=== PATIENT | male | born 1970 | race Caucasian/White ===

== ENCOUNTER 2023-07-31 16:52 | Inpatient (IN) | payer OTHER, SELFPAY ==
[2023-07-31] VITALS (12 sets, daily range): BP systolic 85–119; BP diastolic 36–69; BMI 31.2
--- NOTE | 2023-07-31 12:28 | ED.GENMED ---
History of Present Illness
General
Chief Complaint: Musculo-Skeletal Complaint
Time Seen by Provider: 07/31/23 12:04
Travel History
Have you had any contact with someone who has COVID-19?: No
Do you have any symptoms of coronavirus? Fever > 100 degrees, chills, cough, shortness of breath, sore throat, loss of taste or smell, muscle aches, or headache?: No
History of Present Illness
History of Present Illness:
52-year-old male presents to the emergency department for evaluation of severe right hip pain radiating down the right leg. He is status post right total hip replacement performed by [facility] orthopedics on June 27. 9 days ago while in
[place] he apparently had several syncopal events which resulted in a fall. He was taken by ambulance to [facility], I do not have full records at this time however I do have access to report from a noncontrast CT of the pelvis
that was obtained showing a periprosthetic acetabular fracture on the right as well as a fluid collection adjacent to the hip joint. Patient was treated with narcotic pain medicine, followed up with his orthopedist last week where he was advised
partial weightbearing with walker assistance. Pain has been gradually worsening since that time, initially he was getting good control with oral Dilaudid but in the past 24 hours even this has not provided relief. He does report chills but denies
any fevers.
Review of Systems
Review of Systems
Allergies reviewed?: Yes
All Other Systems: ROS reviewed and negative except as documented in HPI and ROS
Phy Exam
Physical Exam
Physical Exam:
GEN: Well appearing, NAD, WDWN
HEENT: Oral mucosa moist, no scleral icterus
Cardiac: Regular rate
Lung: No respiratory distress, no tachypnea
MSK: Massive hematoma adjacent to the surgical incision site with significant erythema and warmth, exquisitely tender to palpation, no wound dehiscence or discharge, unable to range the hip secondary to pain. Right dorsalis pedis pulse 2+, right
foot sensation intact
Skin: Good color, no pallor or jaundice, no rashes
Neuro: AO x3, moves all extremities freely
Psych: Calm, cooperative
Course
Orders/Labs/Results
Orders:
Orders
07/30/23 Dinner
NPO
Allow oral meds: Yes
Allow clear liquids: No
NPO with Ice Chips: No
07/31/23 12:27
Lower Ext Right w Contrast CT [CT Lower Ext W/iv Cont Rt] Urgent
Comment:
Reason For Exam: R hip hematoma
HYDROmorphone [Dilaudid] 1 mg IV NOW STA
07/31/23 12:59
CRP [C-Reactive Protein] Urgent
Complete Blood Count/With Diff Urgent
Comprehensive Metabolic Panel Urgent
ESR [Erythrocyte Sed Rate] Urgent
07/31/23 14:20
CR Hip - RT w/wo Pel 2-3 Vw* Urgent
Comment:
Reason For Exam: periprosthetic acetabular fracture
Include a pelvis x-ray?: Yes
07/31/23 14:23
Lactic Acid Q4H
Comment: CANCEL 2nd LACTIC ACID IF 1st LACTIC ACID IS LESS THAN 2
07/31/23 14:32
HYDROmorphone [Dilaudid] 0.5 mg IV NOW STA
07/31/23 15:36
Body Fluid Cell Count Urgent
What is the Body Fluid: R hip aspirate
Date Specimen was Collected: 07/31/23
Time Specimen was Collected: 15:33
Anaerobic Culture Urgent
DAYNE Source: Hip
Specimen Description: Right
Date Specimen was Collected: 07/31/23
Time Specimen was Collected: 15:33
Comment: R hip aspirate
Fluid Culture with Gram Stain Urgent
DAYNE Source: Fluid
Specimen Description:
Date Specimen was Collected: 07/31/23
Time Specimen was Collected: 15:33
Comment: R hip aspirate
07/31/23 15:41
Piperacillin/Tazo 3.375 Gram [Zosyn] 3.375 gram in 50 ml IV NOW
07/31/23 15:43
Wound Culture [Wound/Abscess/Other Culture] Urgent
DAYNE Source: Hip
Specimen Description: Right
Date Specimen was Collected: 07/31/23
Time Specimen was Collected: 15:33
Comment: R hip aspiration
07/31/23 15:44
Anaerobic Culture Urgent
DAYNE Source: Hip
Specimen Description: Right
Date Specimen was Collected: 07/31/23
Time Specimen was Collected: 15:42
07/31/23 15:49
Consult Infectious Disease [INFECTIOUS DISEASE CONSULT] Routine
Consulting Provider: Glo Tirado
Was physician already notified: Yes
Reason for consult: PJI hip
07/31/23 15:58
Povidone Iodine 10% Solution [Povidone Iodine 10%] 114 ml 0.9% Sod Chloride 3000 ml Irr [Nss Irrigation Bag] 3,000 ml IRRIG OR
07/31/23 16:19
Vancomycin [Vancocin] 1,500 mg 0.9% Sodium Chloride [Nss] 20 ml 0.9% Sodium Chloride 250 ml [Nss] 250 ml IV NOW
07/31/23 16:24
Admit/Transfer Patient As Directed
Co-Sign Provider:
Level of Care: Inpatient admission
Assign to:: Telemetry
Physician / Group: yamileth/hospitalist
Diagnosis: right hip prosthesis infection
Reason for Telemetry: Arrhythmia
Date to Stop Telemetry: 08/03/23
Time to Stop Telemetry: 11:00
Reason for Hospitalization: right hip prosthesis infection
Expected length of stay greater than two midnights?: Yes
ELOS- Estimated Length of Stay in days: 4
I certify the patient meets the requirements for IP care: Yes
07/31/23 16:26
Code Status As Directed
Resuscitation Status: Full Code
07/31/23 17:00
Povidone Iodine 10% Solution [Povidone Iodine 10%] 114 ml 0.9% Sod Chloride 3000 ml Irr [Nss Irrigation Bag] 3,000 ml IRRIG OR
Tranexamic Acid 1000 mg/100 ml [Tranexamic Acid] 1,000 mg in 100 ml IV ONCE
07/31/23 17:51
HYDROmorphone [Dilaudid] 0.5 mg IV Q3HPRN PRN
Magnesium Hydroxide [Milk of Magnesia] 30 ml PO DAILYPRN PRN
Oxycodone [Roxicodone] 5 mg PO Q4HPRN PRN
Tamsulosin [Flomax] 0.4 mg PO DAILYPRN PRN
07/31/23 17:51
ORTHOPEDIC CONSULT Routine
Consulting Provider: Yann Kimball
Was physician already notified: Yes
Reason for consult: right hip prosthetic infection
Activity As Directed
Activity Level: Bedrest
Bladder Scan As Directed
Follow Bladder Retention/Intermittent Cath Algorithm?: Yes
PRN if no void in __ hours: 6
Comment: if not voiding 6 hrs upon arrival to floor, bladder scan & follow algorithm
Intake/ Output As Directed
Frequency: Per unit guidelines
Neurovascular Checks As Directed
Location: Right Lower extremity
Frequency: q4h
Pneumatic Compression Sleeves As Directed
Type: Knee high
Straight Cath As Directed
Frequency: Per Retention Algorithm
Additional Instructions: straight cath as needed per acute urinary retention algorithm for 24 hrs
Additional Instructions: for bladder scan greater than 400 mL
Vital Signs As Directed
Frequency: Per unit guidelines
DX Deep Vein Thrombosis Video Routine
07/31/23 20:00
Acetaminophen [Tylenol] 650 mg PO Q4HWA
Docusate Sodium [Colace] 100 mg PO BID
Sennosides [Senokot] 17.2 mg PO BID
08/01/23 Breakfast
NPO
Allow oral meds: Yes
Allow clear liquids: No
08/03/23 11:00
DC Protocol for Telemetry ONCE
Abnormal Lab Results
07/31/23
12:59
WBC 16.1 H 10^3/uL
(4.8-10.8)
RBC 3.85 L 10^6/uL
(4.70-6.10)
Hgb 12.9 L g/dL
(13.0-18.0)
Hct 37.2 L %
(39.0-52.0)
MCV 96.6 H fL
(80.0-94.0)
MCH 33.5 H pg
(27.0-31.0)
RDW 14.6 H %
(11.5-14.5)
Plt Count 563 H 10^3/uL
(130-400)
Abs Immat Gran (auto) 0.4 H 10^3/uL
(0-0.05)
Absolute Neuts (auto) 11.7 H 10^3/uL
(1.4-6.5)
Absolute Monos (auto) 1.7 H 10^3/uL
(0.1-0.6)
Immature Gran % 2.5 H %
(0-0.5)
Lymphocytes % 13.2 L %
(20.5-51.1)
Monocytes % 10.4 H %
(1.7-9.3)
ESR 52 H mm/hour
(0-20)
BUN 30 H mg/dl
(9-20)
Alkaline Phosphatase 173 H U/L
(38-126)
C-Reactive Protein 223.10 H mg/L
(0.0-10.00)
Total Protein 6.1 L g/dl
(6.3-8.2)
Albumin 2.9 L g/dl
(3.5-5.0)
07/31/23 12:59
07/31/23 12:59
Vital Signs
Initial and Last Documented VS:
Initial Vital Signs
Temp Pulse Resp BP Pulse Ox
97.4 F 78 18 113/69 98
07/31/23 11:24 07/31/23 11:24 07/31/23 11:24 07/31/23 11:24 07/31/23 11:24
Last Documented Vital Signs
Temp Pulse Resp BP Pulse Ox
100.5 F H 77 18 119/64 92
07/31/23 17:57 07/31/23 18:08 07/31/23 16:00 07/31/23 18:08 07/31/23 17:57
MDM/Problems Addressed
MDM/Problems Addressed:
52-year-old male presenting with worsening pain due to a large hematoma in the right hip. Clinically concerning for infection given the redness warmth and pain. Patient's labs concerning for elevated white blood cell count and markedly elevated
inflammatory arteries. Orthopedics was consulted to aspirate the hip at the bedside for sterile conditions large amount of purulent fluid expressed. Patient will be admitted to the hospital service on broad-spectrum IV antibiotics with plan to
take the patient for operative invention later today
*Critical Care Note
Total Time (30-74mins, 75-104mins- exclusive of procedures): Not Applicable
ED Attending Note
-
Portions of this chart may have been created with voice recognition software.� Occasional wrong word or��sound alike� substitutions may have occurred due to the inherent limitations of voice recognition software.
Discharge Plan
Departure
Patient Disposition: Admit
Date of Disposition: 07/31/23
Time of Disposition: 15:42
Presentation/result/management discussed w/ accepting MD/DO: Hospitalist
Discharge Problem:
Infected prosthesis of right hip
Interventions
Interventions:
*Risk Screen - Suicide Last Done: 07/31/23 11:29
*General Assessment Last Done: 07/31/23 11:29
*Neglect/Abuse Screening Last Done: 07/31/23 11:29
ED- Fall Risk Assessment Last Done: 07/31/23 14:31
*ED COVID-19 Vaccine History Last Done: 07/31/23 11:28
*Nursing Disposition Last Done: 07/31/23 17:49
ED-Musculoskeletal Assessment Last Done: 07/31/23 14:31
Discharge Date and Time
Discharge Date/Time: 07/31/23 17:49
[2023-07-31] MEDS: DILAUDID 1 MG IV (12:59)
[2023-07-31 13:14] LABS: % Basophils 0.6 % (0-2); % Eosinophils 0.9 % (0-6); % Immature Granulocytes 2.5 % (0-0.5); % Lymphocytes 13.2 % (20.5-51.1); % Monocytes 10.4 % (1.7-9.3); % Neutrophils 72.4 % (42.2-75.2); Absolute Basophils 0.1 10^3/uL (0-0.2); Absolute Eosinophils 0.1 10^3/uL (0-0.7); Absolute Immature Granulocytes 0.4 10^3/uL (0-0.05); Absolute Lymphocytes 2.1 10^3/uL (1.2-3.4); Absolute Monocytes 1.7 10^3/uL (0.1-0.6); Absolute Neutrophils 11.7 10^3/uL (1.4-6.5); Hematocrit 37.2 % (39.0-52.0); Hemoglobin 12.9 g/dL (13.0-18.0); Mean Corp Hgb Conc. 34.7 g/dL (33.0-37.0); Mean Corpuscular Hgb 33.5 pg (27.0-31.0); Mean Corpuscular Volume 96.6 fL (80.0-94.0); Mean Platelet Volume 9.8 fL (7.4-10.4); Nucleated Red Blood Cells % 0 % (-); Platelet Count 563 10^3/uL (130-400); Red Blood Cell Count 3.85 10^6/uL (4.70-6.10); Red Cell Dist. Width 14.6 % (11.5-14.5); White Blood Cell Count 16.1 10^3/uL (4.8-10.8)
[2023-07-31 13:23] LABS: Erythrocyte Sed Rate 52 mm/hour (0-20)
[2023-07-31 13:28] LABS: ALT (SGPT) 46 U/L (0-50); AST (SGOT) 42 U/L (17-59); Albumin 2.9 g/dl (3.5-5.0); Alkaline Phosphatase 173 U/L (38-126); Blood Urea Nitrogen 30 mg/dl (9-20); Calcium 9.2 mg/dl (8.4-10.2); Carbon Dioxide 26 mmol/L (22-30); Chloride 103 mmol/L (98-107); Glucose 96 mg/dl (70-99); Potassium 4.1 mmol/L (3.5-5.1); Sodium 135 mmol/L (135-145); Total Bilirubin 1.3 mg/dl (0.2-1.3); Total Protein 6.1 g/dl (6.3-8.2); eGFR > 60.00
[2023-07-31 14:47] LABS: Lactic Acid 0.9 mmol/L (0.7-2.0)
[2023-07-31] MEDS: DILAUDID 0.5 MG IV (15:02)
--- NOTE | 2023-07-31 16:15 | HPS.HSE ---
Family Physician
-
Family Physician: lAexis Odell
Chief Complaint
-
Right hip severe pain
History of Present Illness
The patient is a 52 yo male with PMH significant for arthritis right hip, obesity status post sleeve gastrectomy, GERD, recent right hip replacement 06/24/[address] Chakraborty, who had a fall on 07/22/23 and admitted to [place] where he was found to
have periprosthetic acetabular fracture with overlying fluid collection concerning for post-operative seroma (CT imaging at that time), presenting to the ED today with severe 10/10 right hip pain and swelling. He has been taking oral Dilaudid for
the past several days with no relief. He was discharged from [place] on 07/23/23 after non-operative management and had follow-up with Ortho in office 5 days ago for seroma and advised partial weightbearing with walker assistance, however pain
persisted and worsened associated with swelling and chills. No fever, no CP, no SOB, no n/v/d, no dysuria.
ED Txt:
Ortho Cx
IV Zosyn
IV Vancomycin
Right hip cultures sent prior to IV abx
Medical History
Past Medical History
Past Medical History: Reports Asthma and GERD
Past Surgical History: Reports Appendectomy, Orthopedic (Right hip replacement 06/24) and Other (sleeve gastrectomy)
Social History
Tobacco: Smoker (05/10 PPD)
Alcohol: None
Drug: Marijuana ('edibles' )
Personal:
Living: With Family
Family History
Family History: Not pertinent
Allergies / Home Medications
Allergies reflects when Allergies were last updated in [facility].
Home Medications with original date entered in [facility]
Allergy/Medication List:
Allergies
Allergy/AdvReac Type Severity Reaction Status Date / Time
No Known Allergies Allergy Unverified 07/31/23 11:28
Dilaudid 4 mg PO Q8H prn
Review of Systems
-
A 12 point ROS was completed and negative except as noted: Yes
Physical Exam
Vital Signs
Vital Signs
Temp Pulse Resp BP Pulse Ox
97.4 F 78 18 113/69 98
07/31/23 11:24 07/31/23 11:24 07/31/23 11:24 07/31/23 11:24 07/31/23 11:24
Physical Exam
General: Well Developed, Well Nourished and Conversant
HEENT: NormoCephalic, Anicteric and Moist mucous membranes
Respiratory: Clear
Cardiac: S1/S2 and Regular Rhythm
GI: Soft, Non Tender, Non Distended and Normal Bowel Sounds
Musculoskeletal: Other (Large hematoma adjacent to the surgical incision site with significant erythema and warmth s/p tap by Ortho)
Skin: Warm and Dry
Neuro: AO x 3, No Motor Deficits and Nonfocal/grossly intact
Psych: Calm
Laboratory Results
-
07/31/23 12:59
07/31/23 12:59
Laboratory Results
Lactic Acid Cancelled 07/31/23 15:36
Total Bilirubin 1.3 mg/dl (0.2-1.3) 07/31/23 12:59
AST 42 U/L (17-59) 07/31/23 12:59
ALT 46 U/L (0-50) 07/31/23 12:59
Alkaline Phosphatase 173 U/L (38-126) H 07/31/23 12:59
Data Reviewed
-
CT Scan: Report Reviewed by me (see below)
Impression/Plan
-
IMPRESSION:The patient is a 52 yo male with PMH significant for arthritis right hip, obesity status post sleeve gastrectomy, GERD, recent right hip replacement 06/24/[address] Chakraborty, who had a fall on 07/22/23 and admitted to [place] where he was
found to have periprosthetic acetabular fracture with overlying fluid collection concerning for post-operative seroma (CT imaging at that time), presenting to the ED today with severe 10/10 right hip pain and swelling. He has been taking oral
Dilaudid for the past several days with no relief. He was discharged from [place] on 07/23/23 after non-operative management and had follow-up with Ortho in office 5 days ago for seroma and advised partial weightbearing with walker assistance, however
pain persisted and worsened associated with swelling and chills. No fever, no CP, no SOB, no n/v/d, no dysuria. Ortho performed bedside tap with 1000 mL output from right hip of purulent drainage which was cultured.
ED Txt:
Ortho Cx
IV Zosyn
IV Vancomycin
Right hip cultures sent prior to IV abx
CT findings: There is a large low-density collection, which is mainly lateral and posterior to the right hip replacement, with a small component also seen anteriorly. Much of this collection is surrounding the right proximal femur. There is however
a component of the collection which extends laterally into the lateral subcutaneous soft tissues. There are small foci of air within the anterior aspect of the collection, which could be from previous aspiration, but could also be from air forming
infection.
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
-NPO for OR today with Dr. Estrada/Ortho
-IVF
-right hip cultures pending
-continue IV Vancomycin and IV Zosyn
-Ortho and ID consults placed
-bedrest for now
-pain meds prn
-no DVT proph yet per Ortho recs - going to OR soon
#GERD, stable, monitor
#Ashtma, stable, monitor
DVT Proph- PCDs
Full Code
[2023-07-31] MEDS: ZOSYN 50 IV ×2 (16:28→23:17)
[2023-07-31 16:38] LABS: Body Fluid WBC 498000 /CUMM
[2023-07-31 16:42] LABS: Body Fluid Second Tech DW
[2023-07-31 16:45] LABS: Body Fluid Mononuclear 71 %; Body Fluid Polymorphonuclear 29 %
--- NOTE | 2023-07-31 16:55 | W.PN.UPDATE ---
Update Note
Progress Note Update
Full consult dictated. 52 yo male 5 weeks s/p right THR with Dr. Chakraborty. Was doing well until 1 week ago when he fell while at a bar in [place] 1 week ago. He was taken to [facility] and a CT scan revealed a nondisplaced fracture of
the superior acetabulum. He noted increased swelling after his fall and had increased pain. He was seen by a provider in our office 4-5 days ago and noted to have a seroma or hematoma without signs of infection. He presented to the ER today with
increased pain and swelling. Elevated WBC, ESR, and CRP. Patient uncomfortable. Denies fevers. Under sterile technique 1000cc of purulent fluid was aspirated from the lateral aspect of the hip. Fluid sent for cell count, gram stain and
cultures. Patient has been NPO since last night. Impression: Periprosthetic joint infection. Plan: Discussed with the patient and his . Dr. Estrada has made himself available to take the patient to the OR tonight for I&D and possible
prosthetic exchange vs removal. Risks, Benefits, complications and postop expectations discussed with the patient. ID consulted and discussed with ID.
[2023-07-31] MEDS: VANCOCIN 300 MG IV (16:59)
[2023-07-31] MEDS: VANCOCIN 300 ML IV (16:59)
--- NOTE | 2023-07-31 18:45 | VATNOTE ---
Called to PACU for IV start due to infiltrate at IV site that had been in his left arm. Infiltrate site appears red and uncomfortable. Upon talking with the HERPETOLOGIST and the pt, it appears that vancomycin was infusing when it infiltrated. Called 2S
RN to verify that vancomycin infiltrated. Notified Belkis Gallegos of need for hyaluronidase order to treat infiltrate and heat applied to site of infiltrate.
--- NOTE | 2023-07-31 19:17 | PTCARENOTE ---
Pt came from ER and slid himself over to the bed. Pt going to OR tonight for left hip infection. Pt came up with IV vanco infusing through LAC and complained that the site has been bothering him. Site red and warm. Vanco turned off. IV removed. IV
team aware a new site was needed. Tele monitor placed and BP taken. Admission info not completed as PACU had then called for the patient to come at that time. This RN and another RN took patient to PACU area. was at bedside.
--- NOTE | 2023-07-31 19:25 | VATNOTE ---
Anesthesia at the pt's bedside in the PACU to take pt for surgery. Informed them of pt's need for hyaluronidase for vancomycin infiltrate in L arm and that this RN had not received the doses from pharmacy yet. SHOE IRONER states she can give the
hyaluronidase in the OR. Informed SHOE IRONER of procedure for giving the hyaluronidase and that heat needed to be applied to the site after injecting.
--- NOTE | 2023-07-31 20:27 | PHA.VAN.IN ---
Assessment
- Assessment
Renal Function: Unknown baseline
Maximum Temperature: 100.5
Concomitant Antimicrobials: piperacillin-tazobactam
AUC Dosing Plan
- Dosing Variables
Dosing Weight (kg): 92
Dosing CrCl (ml/min): 95
Vd coefficient (L/kg): 0.6
- Empiric Dosing
Initial / Loading Dose: 1500mg 07/30 16:59; called about infiltrate at 1835
Maintenance Regimen: vanc 1000mg q12h
Estimated AUC (mcg*h/mL): 462
Estimated Peak (mcg*h/mL): 28.7
Estimated Trough (mcg/ml): 12
Estimated Half Life (H): 8.3
- Monitoring
No levels ordered at this time: consider in the upcoming days
Pharmacokinetics Vancomycin I
- -
Patient Age: 52
Patient Sex: Male
Vancomycin Day #: 1
Indication: Bone And Joint
Requesting Provider: Dr Gallegos
Pertinent Antimicrobial Allergies:
no known allergies
Height / Weight:
Height 5 ft 8 in
Actual Weight 92.986 kg
Pertinent Past Medical History: JES 5 weeks ago, fall 1 week ago; swelling at surgery site-back to OR today
- Vital Signs / Lab Results
Temp Pulse Resp BP Pulse Ox
100.5 F H 77 18 119/64 92
07/31/23 17:57 07/31/23 18:08 07/31/23 16:00 07/31/23 18:08 07/31/23 17:57
Lab Results - Hematology
07/31/23
12:59
WBC 16.1 H
Lab Results - Chemistry
07/31/23
12:59
BUN 30 H
Creatinine 1.0
Albumin 2.9 L
07/31/23 07/31/23
14:23 15:36
Lactic Acid 0.9 Cancelled
[2023-07-31] MEDS: NSS 1000 IV ×2 (21:38→22:30)
[2023-07-31] MEDS: DILAUDID 0.25 MG IV (22:07)
--- NOTE | 2023-07-31 22:15 | PTCARENOTE ---
Pt came from ER and slid himself over to the bed. Pt going to OR tonight for right hip infection. Pt came up with IV vanco infusing through LAC and complained that the site has been bothering him. Site red and warm. Vanco turned off. IV removed. IV
team aware a new site was needed. Tele monitor placed and BP taken. Admission info not completed as PACU had then called for the patient to come at that time. This RN and another RN took patient to PACU area. was at bedside.
[2023-07-31] MEDS: SENOKOT 17.1999999999999993 MG PO (23:15)
[2023-07-31] MEDS: ASPIRIN PO (23:15)
[2023-07-31] MEDS: TYLENOL 650 MG PO (23:16)
[2023-07-31] MEDS: COLACE 100 MG PO (23:16)
[2023-07-31] MEDS: BACTROBAN 2% OINTMENT 1 APPLIC NASAL (23:17)
[2023-07-31] MEDS: TYLENOL PO (23:26)
[2023-08-01] VITALS (9 sets, daily range): BP systolic 92–109; BP diastolic 55–71; PULSE 74; O2SAT 97
--- NOTE | 2023-08-01 02:53 | PTCARENOTE ---
Patient received from PACU via bed. He was drowsy but arousable. He was oriented to room and surroundings. He is sleepy but easily arousable. Breath sounds are CTA b/l. Sat 95-97% on 2lpm nasal cannula. HRR Tele NSR. +BS. Gale po fluid and
crackers. Diet advanced to regular. BP 90's-100's/50's. HR 70's. R hip aquacell dressing dry and intact. +DP pulse and good sensation. IVF and IV Abx as ordered.
[2023-08-01] MEDS: ZOSYN 50 IV ×4 (03:20→22:09)
[2023-08-01] MEDS: TYLENOL 650 MG PO ×3 (03:20→17:58)
[2023-08-01] MEDS: VANCOCIN 200 IV ×2 (05:42→17:50)
[2023-08-01 07:07] LABS: Albumin 2.2 g/dl (3.5-5.0)
--- NOTE | 2023-08-01 07:59 | W.PN.ORTHO ---
Today's Communication / Plan
-
52 yo M POD1 right hip I&D with poly and head exchange under the direction of Dr. Estrada
--Partial weight bearing to RLE with walker. Posterior hip precautions. We appreciate the assistance of PT/OT.
--Recommend ASA 325 mg daily x4 weeks for DVT ppx.
--Continue current pain management regimen. Ice and elevation for edema control.
--Gram stain and cultures pending. Continue to follow. We appreciate input from ID. Currently vanc/zosyn.
--Hgb 12.9 this AM. Continue to monitor.
--Maintain Aquacel dressing until 7-10 days post-op. Staple removal at 2 weeks post-op.
--Case management consult for discharge planning.
--Orthopedics will continue to follow along.
Assessment
.
Distal Motor Intact: Yes
Dressing:
Clean, dry and intact.
Plan
.
Surgery / Date: R hip I&D with poly exchange, Sean, 07/30
DVT Prophylaxis: Aspirin
Activity:
Out of bed.
PT/OT
Subjective
.
.:
Mr. Taylor is POD1 following his right hip I&D with poly and head exchange performed by Dr. Estrada. He is resting comfortably in bed this morning. He endorses aching pain about the hip, but states it is much improved from yesterday.
Vital Signs and Labs
.
Vital Signs and Labs:
Lab Results
07/31/23 12:59
07/31/23 12:59
Temp Pulse Resp BP Pulse Ox
97.7 F 67 18 103/57 96
08/01/23 02:00 08/01/23 02:00 08/01/23 02:00 08/01/23 02:00 08/01/23 02:00
Non-invasive Hgb result: 9.6
Physical Exam
-
Directed exam of the right lower extremity reveals Aquacel dressing clean, dry and intact. Expected post-operative edema about the right hip. Thigh soft and compressible. Calf soft and nontender. Patient able to wiggle toes, plantar and dorsiflex
ankle. Neurovascularly intact distally.
--- NOTE | 2023-08-01 08:03 | PTCARENOTE ---
Critical Lab value: Blood cultures positive for cocci in clusters. Dr. Persaud notified [phone] via tiger text.
--- NOTE | 2023-08-01 08:29 | VATNOTE ---
VAT rounds: left arm infiltrate has been resolved. no c/o pain no swelling redness noted.
[2023-08-01 09:03] LABS: % Basophils 0.3 % (0-2); % Immature Granulocytes 3.1 % (0-0.5); % Lymphocytes 9.9 % (20.5-51.1); % Monocytes 3.4 % (1.7-9.3); % Neutrophils 83.3 % (42.2-75.2); Absolute Basophils 0.1 10^3/uL (0-0.2); Absolute Immature Granulocytes 0.7 10^3/uL (0-0.05); Absolute Lymphocytes 2.1 10^3/uL (1.2-3.4); Absolute Monocytes 0.7 10^3/uL (0.1-0.6); Absolute Neutrophils 17.6 10^3/uL (1.4-6.5); Hematocrit 31.6 % (39.0-52.0); Hemoglobin 10.4 g/dL (13.0-18.0); Mean Corp Hgb Conc. 32.9 g/dL (33.0-37.0); Mean Corpuscular Hgb 32.8 pg (27.0-31.0); Mean Corpuscular Volume 99.7 fL (80.0-94.0); Nucleated Red Blood Cells % 0 % (-); Platelet Count 562 10^3/uL (130-400); Red Blood Cell Count 3.17 10^6/uL (4.70-6.10); Red Cell Dist. Width 14.6 % (11.5-14.5); White Blood Cell Count 21.2 10^3/uL (4.8-10.8)
[2023-08-01] MEDS: COLACE 100 MG PO ×2 (09:13→19:32)
[2023-08-01] MEDS: ASPIRIN 325 MG PO (09:13)
[2023-08-01] MEDS: SENOKOT 17.1999999999999993 MG PO ×2 (09:13→19:32)
[2023-08-01 09:18] LABS: Blood Urea Nitrogen 27 mg/dl (9-20); Calcium 8.2 mg/dl (8.4-10.2); Carbon Dioxide 25 mmol/L (22-30); Chloride 102 mmol/L (98-107); Estimated Creatinine Clearance 95 ml/min; Glucose 132 mg/dl (70-99); Potassium 4.1 mmol/L (3.5-5.1); Sodium 137 mmol/L (135-145); eGFR > 60.00
[2023-08-01] MEDS: TYLENOL PO (09:32)
[2023-08-01] MEDS: NSS IV (09:32)
[2023-08-01] MEDS: BACTROBAN 2% OINTMENT NASAL (09:32)
--- NOTE | 2023-08-01 09:41 | PHA.VAN.FU ---
Vancomycin Assessment / Plan
- Assessment
Renal Function: Stable
Concomitant Antimicrobials: piperacillin/tazobactam
- Dosing Plan
Continue: Vanc 1000mg Q12H
- Monitoring Plan
No level(s) ordered at this time: consider levels in next few days
Monitoring Comments: follow BUN trend
- Follow Up
Pharmacy will continue to follow.
Vancomycin Follow UP
- -
Patient Age: 52
Patient Sex: Male
Vancomycin Day #: 2
Indication: Bone And Joint
Requesting Provider: Dr Gallegos
Pertinent Antimicrobial Allergies:
NKDA
Height / Weight:
Height 5 ft 8 in
Actual Weight 92.986 kg
Pertinent Past Medical History: JES 5 weeks ago, BMI ~31
- Vital Signs / Lab Results
Temp Pulse Resp BP Pulse Ox
98.0 F 73 18 97/63 94
08/01/23 08:18 08/01/23 08:18 08/01/23 08:18 08/01/23 08:18 08/01/23 08:18
Lab Results - Hematology
07/31/23
12:59
WBC 16.1 H
Lab Results - Chemistry
07/31/23 08/01/23 08/01/23
12:59 06:05 08:43
BUN 30 H 27 H
Creatinine 1.0 1.0
Estimated Creat Clear 95
Albumin 2.9 L 2.2 L
07/31/23 07/31/23
14:23 15:36
Lactic Acid 0.9 Cancelled
Microbiology Results
07/31/23 20:00 Gram Stain - Preliminary
Hip - Right
07/31/23 15:44 Anaerobic Culture - Preliminary
Hip - Right Culture pending. Anaerobic cultures are examined after 3
days incubation. Additional information to follow.
07/31/23 15:36 Anaerobic Culture - Preliminary
Hip - Right Culture pending. Anaerobic cultures are examined after 3
days incubation. Additional information to follow.
07/31/23 15:43 Wound Culture - Preliminary
Hip - Right Gram Stain - Final
--- NOTE | 2023-08-01 10:52 | W.PN.HOSP.TC ---
Today's Communication/Plan
-
check blood cultured
tred cbc
ID eval pending
asa
pt/ot
Assessment / Plan
Assessment / Plan
The patient is a 52 yo male with PMH significant for arthritis right hip, obesity status post sleeve gastrectomy, GERD, recent right hip replacement 06/24/[address] Chakraborty, who had a fall on 07/22/23 and admitted to [place] where he was found to
have periprosthetic acetabular fracture with overlying fluid collection concerning for post-operative seroma (CT imaging at that time), presenting to the ED today with severe 10/10 right hip pain and swelling.� He has been taking oral Dilaudid for
the past several days with no relief. He was discharged from [facility] on 07/23/23 after non-operative management and had follow-up with Ortho in office 5 days ago for seroma and advised partial weightbearing with walker assistance, however pain
persisted and worsened associated with swelling and chills. No fever, no CP, no SOB, no n/v/d, no dysuria. Ortho performed bedside tap with 1000 mL output from right hip of purulent drainage which was cultured.
CT findings: There is a large low-density collection, which is mainly lateral and posterior to the right hip replacement, with a small component also seen anteriorly. Much of this collection is surrounding the right proximal femur. There is however
a component of the collection which extends laterally into the lateral subcutaneous soft tissues. There are small foci of air within the anterior aspect of the collection, which could be from previous aspiration, but could also be from air forming
infection.
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
#Sepsis 2/2 above-poa
-s/p emergency bedside drainage of 1000cc purulent fluids on admission
-s/p emergent surgery with poly and head exchange under the direction of Dr. Estrada on 07/30
-continue IV Vancomycin and IV Zosyn
-pain meds prn
-hip fluids + GPC.
-Check blood cultures
-ID recs
-Ortho following
#GERD, stable, monitor
#Ashtma, stable, monitor
DVT Proph--started on aspirin 325mg per ortho
Full Code
PT/OT
Anticipated Discharge: > 48 hours
Subjective/Interval History
-
Date of Service: August 01, 2023
states pain has improved post surgery
currently sitting in chair
Objective Data
-
Labs:
Laboratory Results
08/01/23
08:43
WBC 21.2 H
Hgb 10.4 L
Hct 31.6 L
Plt Count 562 H
Sodium 137
Potassium 4.1
Chloride 102
Carbon Dioxide 25
BUN 27 H
Creatinine 1.0
Glucose 132 H
Calcium 8.2 L
Vital Signs:
Vital Signs
Temp Pulse Resp BP Pulse Ox
98.0 F 73 18 97/63 94
08/01/23 08:18 08/01/23 08:18 08/01/23 08:18 08/01/23 08:18 08/01/23 08:18
I&O
07/31/23 08/01/23 08/02/23
06:59 06:59 06:59
Intake Total 1315 / 1315
Output Total 400 / 400
Balance 915 / 915
Physical Exam
-
General: Well Developed and No Apparent Distress
HEENT: Normocephalic, Atraumatic and Moist Mucous Membranes
Respiratory: Clear to Auscultation
Cardiac: Regular Rhythm and S1/S2; Negative Murmur, Rub or Gallop
GI: Soft, Nontender, Nondistended and Normal Bowel Sounds; Negative Organomegaly
Rectal: Deferred by Provider
Musculoskeletal: No Clubbing, No Cyanosis and Other (R hip aquacell dressing )
Skin: Negative Rash
Neuro: Awake, Oriented, AO x 3 and Nonfocal/Grossly Intact
Psych: Calm
Data Reviewed
-
Total Time Spent with Patient (in minutes): 55
--- NOTE | 2023-08-01 11:45 | CM ---
Addendum entered by Saba Crandall RN 08/01/23 12:44:
CM consult for VN received. Referral to [facility] made. VN does not cover the patient's area.
Original Note:
Reviewed the chart notes and spoke with the patient at the bedside. The patient resides with his spouse in a two story home with two steps to enter. The patient has a rolling walker, cane, and crutches. Patient was using a walker after hip
replacement recently, but then had graduated to a cane prior to falling. The patient has had VN in the past, but could not recall the name of the agency, no SNF. The patient confirmed his pharmacy of choice is the [facility] [address] Kamila Dave.
continues to be available to patient/family and is monitoring medical plan for needs at discharge.
Plan: Discharge plans will depend on the patient's progress. ID evaluation pending.
--- NOTE | 2023-08-01 12:23 | PTCARENOTE ---
Critical lab: pos for MRSA Dr. Persaud notified [phone]. placed in chart
--- NOTE | 2023-08-01 12:30 | CON.ID ---
Consultation
-
Date/Time Consultation Requested: 07/31/23 1540
Date/Time Consultation Performed: 08/01/2023 1200
Requesting Provider: Tru Purcell
Performing Provider: Dr. Sanchez
Reason for Consultation: Right hip septic arthritis
Chief Complaint / Past History
History of Present Illness
Josue Taylor is a 52-year-old man evaluated regarding right hip septic arthritis. History is obtained from chart review, along with patient interview.
Patient reports that he underwent right hip replacement on 06/27/2023. He reports in the immediate postop period he did well and was ambulating without a cane. He reports that he followed with Orthopedics and things were 'looking good', but
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 He was taken to [facility] where a CT scan evidently showed some type of fracture. Ultimately he was discharged, but notes
that he had ongoing swelling and discomfort in the right hip area. He was seen again in follow-up by Ortho last week with ongoing pain. The discomfort increased over the weekend and he came to the hospital yesterday morning. CT imaging showed a
collection surrounding the proximal right femur. Collection was aspirated with the finding of purulence, and the patient was taken to the OR yesterday.
At this time he reports he is overall feeling improved, noting that pain is only 3/10. He denies any prior fevers or chills.
Past History
Past Medical History: Asthma
Additional Past Surgical History:
Appendectomy
Right hip replacement (06/27/2023)
Sleeve gastrectomy
Allergy History:
No Known Allergies Allergy (Unverified 07/31/23 11:28)
Medications Reviewed: Yes
Current Antibiotics:
Vancomycin
Zosyn
Social History
Tobacco: Smoker (05/10 PPD)
Alcohol: Occasional
Drug: Marijuana
Personal:
Living: With Family
Employment: Employed
Family History
Family History: Not Pertinent
Review of Systems
Vital Signs
Temp Pulse Resp BP Pulse Ox
97.9 F 78 18 105/63 99
08/01/23 11:49 08/01/23 11:49 08/01/23 11:49 08/01/23 11:49 08/01/23 11:49
Physical Exam
Physical Exam
Constitutional: No Acute Distress, Well Developed, Comfortable and Non-toxic
Head: Normocephalic
Eyes: Pupils Equal, Pupils Round, No Conjunctival Hemorrhage and Sclera Anicteric
Oral: No Thrush and No Ulcers
Cardiovascular: S1/S2; Negative S3/S4
Pulmonary: Clear; Negative Wheezes, Rales or Rhonchi
Gastrointestinal: Soft, Non Tender and Non Distended
Skin: Negative Rash or Jaundice
Wound: Other (Right hip dressed.)
Neurological: Awake and Alert
Psychological: Calm
Lab / Diagnostic Study Results
08/01/23 08:43
08/01/23 08:43
Abs Immat Gran (auto) 0.7 10^3/uL (0-0.05) H 08/01/23 08:43
Absolute Neuts (auto) 17.6 10^3/uL (1.4-6.5) H 08/01/23 08:43
Absolute Lymphs (auto) 2.1 10^3/uL (1.2-3.4) 08/01/23 08:43
Absolute Monos (auto) 0.7 10^3/uL (0.1-0.6) H 08/01/23 08:43
Absolute Basos (auto) 0.1 10^3/uL (0-0.2) 08/01/23 08:43
Immature Gran % 3.1 % (0-0.5) H 08/01/23 08:43
Neutrophils % 83.3 % (42.2-75.2) H 08/01/23 08:43
Lymphocytes % 9.9 % (20.5-51.1) L 08/01/23 08:43
Monocytes % 3.4 % (1.7-9.3) 08/01/23 08:43
Eosinophils % 0.0 % (0-6) 08/01/23 08:43
Basophils % 0.3 % (0-2) 08/01/23 08:43
ESR 52 mm/hour (0-20) H 07/31/23 12:59
Lactic Acid Cancelled 07/31/23 15:36
C-Reactive Protein 223.10 mg/L (0.0-10.00) H 07/31/23 12:59
Microbiology Results
Micro:
07/31/23 15:43 Wound Culture - Preliminary
Hip - Right Staph aureus MRSA
Gram Stain - Final
07/31/23 15:36 Anaerobic Culture - Preliminary
Hip - Right Culture pending. Anaerobic cultures are examined after 3
days incubation. Additional information to follow.
07/31/23 15:44 Anaerobic Culture - Preliminary
Hip - Right Culture pending. Anaerobic cultures are examined after 3
days incubation. Additional information to follow.
07/31/23 20:00 Wound Culture - Pending
Hip - Right Gram Stain - Preliminary
07/31/23 20:00 Wound Culture - Pending
Hip - Right Gram Stain - Preliminary
08/01/23 09:24 Blood Culture - Pending
Blood/Venous
08/01/23 08:43 Blood Culture - Pending
Blood/Venous
07/31/23 20:00 Anaerobic Culture - Pending
Hip - Right
07/31/23 20:00 Anaerobic Culture - Pending
Hip - Right
07/31/23 15:36 Body Fluid Culture - Pending
Fluid Gram Stain - Pending
Imaging:
07/31/2023 CT right hip with IV contrast: A subtle linear fracture through the right posterior and superior acetabulum is noted. A large low-density collection surrounding the proximal right femur and with a communicating extension into the lateral
subcutaneous tissue is noted. Please see full dictation for additional detail. Film personally viewed.
Assessment / Plan
Right hip PJI
MRSA infection
Leukocytosis
Tobacco use
Recommendations:
Continue with vancomycin and Zosyn while cultures are pending.
Monitor white count and temperature curve.
Await final culture sensitivity to guide further antimicrobial selection and de-escalation.
Advised patient that he will likely need a prolonged course of IV antibiotics +/- indefinite suppression.
Counseled on importance of tobacco cessation
[2023-08-01] MEDS: ROXICODONE 5 MG PO (13:58)
[2023-08-01] MEDS: DILAUDID 0.5 MG IV ×3 (15:49→23:02)
--- NOTE | 2023-08-01 17:16 | W.PN.UPDATE ---
Update Note
Progress Note Update
Patient seen and examined. VSS. Patient feeling much better today. Dressing CDI. ROM without discomfort. Cultures positive for MRSA. Appreciate ID and hospitalists care. IV antibiotics. PICC line. Followup with Dr. Chakraborty in the office in
1-2 weeks.
--- NOTE | 2023-08-01 18:38 | W.PN.UPDATE ---
Update Note
Progress Note Update
Patient is now 1 day status post I&D and revision of infected right JES. Initial microbiologic evaluation shows MRSA. Appreciate infectious disease input. Patient will remain on IV antibiotics for now. Prognosis is guarded. If antibiotic
treatment is unsuccessful, patient may need to undergo two-stage revision surgery. We will continue to follow this patient in the hospital and as an outpatient. I have discussed the case, recent treatment, and prognosis in detail with the patient
and his , Tati.
[2023-08-02] MEDS: ROXICODONE 10 MG PO ×3 (01:31→18:23)
[2023-08-02 03:08] VITALS: BP 101/50
[2023-08-02] MEDS: DILAUDID 0.5 MG IV ×4 (03:12→21:07)
[2023-08-02] MEDS: ZOSYN 50 IV ×2 (04:31→09:59)
[2023-08-02 05:00] LABS: % Basophils 0.4 % (0-2); % Eosinophils 1.1 % (0-6); % Immature Granulocytes 4.9 % (0-0.5); % Lymphocytes 22.9 % (20.5-51.1); % Monocytes 6.7 % (1.7-9.3); Absolute Basophils 0.1 10^3/uL (0-0.2); Absolute Eosinophils 0.2 10^3/uL (0-0.7); Absolute Immature Granulocytes 0.8 10^3/uL (0-0.05); Absolute Lymphocytes 3.7 10^3/uL (1.2-3.4); Absolute Monocytes 1.1 10^3/uL (0.1-0.6); Absolute Neutrophils 10.3 10^3/uL (1.4-6.5); Hematocrit 24.4 % (39.0-52.0); Hemoglobin 8.4 g/dL (13.0-18.0); Mean Corp Hgb Conc. 34.4 g/dL (33.0-37.0); Mean Corpuscular Hgb 33.6 pg (27.0-31.0); Mean Corpuscular Volume 97.6 fL (80.0-94.0); Mean Platelet Volume 9.9 fL (7.4-10.4); Nucleated Red Blood Cells % 0 % (-); Platelet Count 490 10^3/uL (130-400); Red Cell Dist. Width 14.4 % (11.5-14.5)
[2023-08-02] MEDS: VANCOCIN 200 IV ×2 (05:11→17:58)
[2023-08-02 06:03] LABS: Blood Urea Nitrogen 25 mg/dl (9-20); Calcium 7.8 mg/dl (8.4-10.2); Carbon Dioxide 24 mmol/L (22-30); Chloride 104 mmol/L (98-107); Estimated Creatinine Clearance 105 ml/min; Glucose 84 mg/dl (70-99); Potassium 3.5 mmol/L (3.5-5.1); Sodium 135 mmol/L (135-145); eGFR > 60.00
[2023-08-02 07:00] VITALS: BP 96/52
[2023-08-02] MEDS: ASPIRIN 325 MG PO (08:25)
[2023-08-02] MEDS: SENOKOT 17.1999999999999993 MG PO ×2 (08:25→21:06)
[2023-08-02] MEDS: COLACE 100 MG PO ×2 (08:25→21:07)
--- NOTE | 2023-08-02 08:40 | PHA.VAN.FU ---
Vancomycin Assessment / Plan
- Assessment
Renal Function: Stable
WBC's are: Trending Down
In the past 24 hrs, patient has been: Afebrile
Concomitant Antimicrobials: piperacillin/tazobactam
- Dosing Plan
Continue: Vanc 1000mg Q12H
- Monitoring Plan
Peak Level: 08/01 20:30
Trough Level: 08/02 05:30
- Follow Up
Pharmacy will continue to follow.
Vancomycin Follow UP
- -
Patient Age: 52
Patient Sex: Male
Vancomycin Day #: 3
Indication: [facility]
Requesting Provider: Dr Gallegos
Pertinent Antimicrobial Allergies:
NKDA
Height / Weight:
Height 5 ft 8 in
Actual Weight 92.986 kg
Pertinent Past Medical History: JES 5 weeks ago, BMI ~31
- Vital Signs / Lab Results
Temp Pulse Resp BP Pulse Ox
98.3 F 59 16 96/52 100
08/02/23 03:08 08/02/23 07:00 08/02/23 07:00 08/02/23 07:00 08/02/23 07:00
Lab Results - Hematology
07/31/23 08/01/23 08/02/23
12:59 08:43 04:32
WBC 16.1 H 21.2 H 16.0 H
Lab Results - Chemistry
07/31/23 08/01/23 08/01/23
12:59 06:05 08:43
BUN 30 H 27 H
Creatinine 1.0 1.0
Estimated Creat Clear 95
Albumin 2.9 L 2.2 L
08/02/23
04:32
BUN 25 H
Creatinine 0.9
Estimated Creat Clear 105
Albumin
07/31/23 07/31/23
14:23 15:36
Lactic Acid 0.9 Cancelled
Microbiology Results
07/31/23 15:43 Wound Culture - Final
Hip - Right Staph aureus MRSA
Gram Stain - Final
07/31/23 15:36 Anaerobic Culture - Preliminary
Hip - Right Culture pending. Anaerobic cultures are examined after 3
days incubation. Additional information to follow.
07/31/23 15:44 Anaerobic Culture - Preliminary
Hip - Right Culture pending. Anaerobic cultures are examined after 3
days incubation. Additional information to follow.
07/31/23 20:00 Gram Stain - Preliminary
Hip - Right
07/31/23 20:00 Gram Stain - Preliminary
Hip - Right
--- NOTE | 2023-08-02 09:42 | W.PN.UPDATE ---
Update Note
Progress Note Update
52 yo M POD #2 right hip I&D with poly and head exchange under the direction of Dr. Estrada.� Reports more pain this morning than yesterday am.� Increased pain with motion today.
--Dressing is c/d/i. No drainage. Mild diffuse swelling. Dressing peeled back to reveal no significant erythema.
--Partial weight bearing to RLE with walker. Posterior hip precautions. We appreciate the assistance of PT/OT.
--Recommend ASA 325 mg daily x4 weeks for DVT ppx.
--Continue current pain management regimen. Ice and elevation for edema control.
--Cultures growing out MRSA.� Appreciate Infectious Disease recommendations for IV abx.
--Hgb stable.
--Maintain Aquacel dressing until 7-10 days post-op. Staple removal at 2 weeks post-op.
--Case management consult for discharge planning.
--Orthopedics will continue to follow along.
--- NOTE | 2023-08-02 10:52 | W.PN.HOSP.TC ---
Today's Communication/Plan
-
Continue antibiotic
ID recs
Continue with aspirin for DVT prophylaxis
Pain control
Assessment / Plan
Assessment / Plan
The patient is a 52 yo male with PMH significant for arthritis right hip, obesity status post sleeve gastrectomy, GERD, recent right hip replacement 06/24/[address] Chakraborty, who had a fall on 07/22/23 and admitted to [facility] where he was found to
have periprosthetic acetabular fracture with overlying fluid collection concerning for post-operative seroma (CT imaging at that time), presenting to the ED today with severe 10/10 right hip pain and swelling.� He has been taking oral Dilaudid for
the past several days with no relief. He was discharged from [facility] on 07/23/23 after non-operative management and had follow-up with Ortho in office 5 days ago for seroma and advised partial weightbearing with walker assistance, however pain
persisted and worsened associated with swelling and chills. No fever, no CP, no SOB, no n/v/d, no dysuria. Ortho performed bedside tap with 1000 mL output from right hip of purulent drainage which was cultured.
CT findings: There is a large low-density collection, which is mainly lateral and posterior to the right hip replacement, with a small component also seen anteriorly. Much of this collection is surrounding the right proximal femur. There is however
a component of the collection which extends laterally into the lateral subcutaneous soft tissues. There are small foci of air within the anterior aspect of the collection, which could be from previous aspiration, but could also be from air forming
infection.
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
#Sepsis 2/2 above-poa
-s/p emergency bedside drainage of 1000cc purulent fluids on admission
-s/p emergent surgery with poly and head exchange under the direction of Dr. Estrada on 07/30
-continue IV Vancomycin and IV Zosyn.
-pain meds prn leukocytosis improving.
-Wound cultures with MRSA infection susceptibility results noted.
-Blood cultures negative so far
-PICC line and will require prolonged course of antibiotics with possible suppression therapy per ID.
-ID recs
-Ortho following
#GERD, stable, monitor
#Ashtma, stable, monitor
DVT Proph--started on aspirin 325mg per ortho
Full Code
PT/OT-outpatient therapy
Anticipated Discharge: > 48 hours
Subjective/Interval History
-
Date of Service: August 02, 2023
States catching up on sleep
States of mild hip pain
Objective Data
-
Labs:
Laboratory Results
08/02/23
04:32
WBC 16.0 H
Hgb 8.4 L
Hct 24.4 L
Plt Count 490 H
Sodium 135
Potassium 3.5
Chloride 104
Carbon Dioxide 24
BUN 25 H
Creatinine 0.9
Glucose 84
Calcium 7.8 L
Vital Signs:
Vital Signs
Temp Pulse Resp BP Pulse Ox
98.3 F 59 16 96/52 100
08/02/23 03:08 08/02/23 07:00 08/02/23 07:00 08/02/23 07:00 08/02/23 07:00
I&O
08/01/23 08/02/23 08/03/23
06:59 06:59 06:59
Intake Total 1315 / 1315 1640 / 1640
Output Total 400 / 400 700 / 700
Balance 915 / 915 940 / 940
Physical Exam
-
General: Well Developed and No Apparent Distress
HEENT: Normocephalic, Atraumatic and Moist Mucous Membranes
Respiratory: Clear to Auscultation
Cardiac: Regular Rhythm and S1/S2; Negative Murmur, Rub or Gallop
GI: Soft, Nontender, Nondistended and Normal Bowel Sounds; Negative Organomegaly
Rectal: Deferred by Provider
Musculoskeletal: No Clubbing, No Cyanosis and Other (R hip aquacell dressing )
Skin: Negative Rash
Neuro: Awake, Oriented, AO x 3 and Nonfocal/Grossly Intact
Psych: Calm
[2023-08-02] MEDS: TYLENOL 650 MG PO (12:22)
--- NOTE | 2023-08-02 14:51 | CM ---
Reviewed the chart notes. Patient +MRSA. Per iD, will likely need prolonged IV abx. Await abx for cost analysis with his insurance. Susan will follow at discharge. CM continues to be available to patient/family and is monitoring medical plan
for needs at discharge.
Plan: Discharge to home with Susan [facility].
Susan .
[2023-08-02 15:00] VITALS: BP 109/60
--- NOTE | 2023-08-02 16:16 | W.PN.ID1 ---
Date of Service
Date of Service: August 02, 2023
Today's Communication
Contiue abx.
Assessment / Plan
Right hip PJI
- S/P washout
MRSA infection
Leukocytosis
Tobacco use
Recommendations:
Continue vancomycin while further sensitivities are pending.
Discontinue further Zosyn.
Await final culture sensitivity to guide further antimicrobial selection and de-escalation.
Advised patient that he will likely need a prolonged course of IV antibiotics +/- indefinite suppression.
Chief Complaint
-: Other (Right hip prosthetic joint infection)
Subjective / Review of Systems
Review of Systems: No Fever and No Chills
Vital Signs / Physical Exam
Vital Signs
Vital Signs
Temp Pulse Resp BP Pulse Ox
97.8 F 64 16 109/60 96
08/02/23 15:00 08/02/23 15:00 08/02/23 15:00 08/02/23 15:00 08/02/23 15:00
Physical Exam
Constitutional: No Acute Distress, Comfortable and Non-toxic
Eyes: Sclera Anicteric
Pulmonary: Non Labored
Wound: Other (Right hip wound dressed. Minimal surrounding erythema.)
Neurological: Awake and Alert
Psychological: Calm
Objective Data
Lab Data
Lab Results
08/02/23 04:32
08/02/23 04:32
ESR 52 mm/hour (0-20) H 07/31/23 12:59
Estimated Creat Clear 105 ml/min 08/02/23 04:32
Lactic Acid Cancelled 07/31/23 15:36
Total Bilirubin 1.3 mg/dl (0.2-1.3) 07/31/23 12:59
AST 42 U/L (17-59) 07/31/23 12:59
ALT 46 U/L (0-50) 07/31/23 12:59
Alkaline Phosphatase 173 U/L (38-126) H 07/31/23 12:59
C-Reactive Protein 223.10 mg/L (0.0-10.00) H 07/31/23 12:59
Most recent labs reviewed.
Micro Results:
08/01/23 09:24 Blood Culture - Preliminary
Blood/Venous No Growth in 24 hours- Final report to follow
07/31/23 20:00 Anaerobic Culture - Preliminary
Hip - Right Culture pending. Anaerobic cultures are examined after 3
days incubation. Additional information to follow.
07/31/23 20:00 Wound Culture - Preliminary
Hip - Right Staph aureus MRSA
Gram Stain - Preliminary
07/31/23 20:00 Wound Culture - Preliminary
Hip - Right Staph aureus MRSA
Gram Stain - Preliminary
07/31/23 20:00 Anaerobic Culture - Preliminary
Hip - Right Culture pending. Anaerobic cultures are examined after 3
days incubation. Additional information to follow.
08/01/23 08:43 Blood Culture - Preliminary
Blood/Venous No Growth in 24 hours- Final report to follow
07/31/23 15:43 Wound Culture - Final
Hip - Right Staph aureus MRSA
Gram Stain - Final
07/31/23 15:36 Anaerobic Culture - Preliminary
Hip - Right Culture pending. Anaerobic cultures are examined after 3
days incubation. Additional information to follow.
07/31/23 15:44 Anaerobic Culture - Preliminary
Hip - Right Culture pending. Anaerobic cultures are examined after 3
days incubation. Additional information to follow.
Imaging:
07/31/2023 CT right hip with IV contrast: A subtle linear fracture through the right posterior and superior acetabulum is noted. A large low-density collection surrounding the proximal right femur and with a communicating extension into the lateral
subcutaneous tissue is noted. Please see full dictation for additional detail. Film personally viewed.
[2023-08-02 19:31] VITALS: BP 92/59
[2023-08-02 20:46] LABS: Vancomycin Peak 23.3 ug/ml (18-26)
[2023-08-02] MEDS: ROXICODONE 5 MG PO (22:59)
[2023-08-02 23:19] VITALS: BP 97/51
[2023-08-03] MEDS: DILAUDID 0.5 MG IV ×6 (00:24→20:52)
--- NOTE | 2023-08-03 04:07 | DOWNTIME ---
There was a [employer] Client [employer] Downtime on 08/03/2023 from 0100 to 08/03/2023 at 0322. Downtime documentation of patient's care, including medication administrations, has been reconciled in the electronic record per guidelines. Refer to the
patient's paper chart under the miscellaneous tab to see printed paper medication records and downtime forms.
[2023-08-03 04:55] LABS: % Basophils 0.5 % (0-2); % Eosinophils 2.6 % (0-6); % Immature Granulocytes 4.4 % (0-0.5); % Lymphocytes 24.8 % (20.5-51.1); % Monocytes 6.8 % (1.7-9.3); % Neutrophils 60.9 % (42.2-75.2); Absolute Basophils 0.1 10^3/uL (0-0.2); Absolute Eosinophils 0.3 10^3/uL (0-0.7); Absolute Immature Granulocytes 0.5 10^3/uL (0-0.05); Absolute Lymphocytes 2.8 10^3/uL (1.2-3.4); Absolute Monocytes 0.8 10^3/uL (0.1-0.6); Absolute Neutrophils 6.9 10^3/uL (1.4-6.5); Hemoglobin 8.3 g/dL (13.0-18.0); Mean Corp Hgb Conc. 33.2 g/dL (33.0-37.0); Mean Corpuscular Hgb 32.8 pg (27.0-31.0); Mean Corpuscular Volume 98.8 fL (80.0-94.0); Mean Platelet Volume 9.9 fL (7.4-10.4); Nucleated Red Blood Cells % 0 % (-); Platelet Count 492 10^3/uL (130-400); Red Blood Cell Count 2.53 10^6/uL (4.70-6.10); Red Cell Dist. Width 14.4 % (11.5-14.5); White Blood Cell Count 11.4 10^3/uL (4.8-10.8)
[2023-08-03] MEDS: TYLENOL 650 MG PO (05:05)
[2023-08-03 05:15] VITALS: BMI 31.0
[2023-08-03 05:29] LABS: Vancomycin Trough 13.5 ug/ml (5-20)
[2023-08-03 05:36] LABS: Blood Urea Nitrogen 19 mg/dl (9-20); Calcium 8.1 mg/dl (8.4-10.2); Carbon Dioxide 27 mmol/L (22-30); Chloride 103 mmol/L (98-107); Estimated Creatinine Clearance 105 ml/min; Glucose 86 mg/dl (70-99); Potassium 3.8 mmol/L (3.5-5.1); Sodium 135 mmol/L (135-145); eGFR > 60.00
[2023-08-03] MEDS: VANCOCIN 200 IV (05:41)
[2023-08-03 06:00] VITALS: BMI 31.0
[2023-08-03 07:34] VITALS: BP 104/70
--- NOTE | 2023-08-03 07:34 | W.PN.ORTHO ---
Today's Communication / Plan
-
52 yo M POD #3 right hip I&D with poly and head exchange under the direction of Dr. Estrada.� He feels improved compared to yesterday.
--Dressing is c/d/i. No drainage. Mild diffuse swelling. Dressings dry
--Partial weight bearing to RLE with walker. Posterior hip precautions. We appreciate the assistance of PT/OT.
--Recommend ASA 325 mg daily x4 weeks for DVT ppx.
--Continue current pain management regimen. Ice and elevation for edema control.
--Cultures growing out MRSA.� Appreciate Infectious Disease recommendations for IV abx.
--Hgb stable.
--Maintain Aquacel dressing until 7-10 days post-op. Staple removal at 2 weeks post-op.
--Case management consult for discharge planning.
--Orthopedics will continue to follow along.
Assessment
.
Dressing:
Clean, dry and intact.
Plan
.
Surgery / Date: R hip I&D with poly exchange, Sean, 07/30
Activity:
Out of bed.
PT/OT
Subjective
.
.:
Patient resting comfortably.
Vital Signs and Labs
.
Vital Signs and Labs:
Lab Results
08/03/23 04:37
08/03/23 04:37
Temp Pulse Resp BP Pulse Ox
98.3 F 71 16 97/51 97
08/02/23 23:19 08/02/23 23:19 08/02/23 23:19 08/02/23 23:19 08/02/23 23:19
Non-invasive Hgb result: 9.6
--- NOTE | 2023-08-03 07:42 | W.PN.HOSP.TC ---
Today's Communication/Plan
-
PICC line
daptomycin
start dispo process
Assessment / Plan
Assessment / Plan
The patient is a 52 yo male with PMH significant for arthritis right hip, obesity status post sleeve gastrectomy, GERD, recent right hip replacement 06/24/[address] Chakraborty, who had a fall on 07/22/23 and admitted to [facility] where he was found to
have periprosthetic acetabular fracture with overlying fluid collection concerning for post-operative seroma (CT imaging at that time), presenting to the ED today with severe 10/10 right hip pain and swelling.� He has been taking oral Dilaudid for
the past several days with no relief. He was discharged from [facility] on 07/23/23 after non-operative management and had follow-up with Ortho in office 5 days ago for seroma and advised partial weightbearing with walker assistance, however pain
persisted and worsened associated with swelling and chills. No fever, no CP, no SOB, no n/v/d, no dysuria. Ortho performed bedside tap with 1000 mL output from right hip of purulent drainage which was cultured.
CT findings: There is a large low-density collection, which is mainly lateral and posterior to the right hip replacement, with a small component also seen anteriorly. Much of this collection is surrounding the right proximal femur. There is however
a component of the collection which extends laterally into the lateral subcutaneous soft tissues. There are small foci of air within the anterior aspect of the collection, which could be from previous aspiration, but could also be from air forming
infection.
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
#Sepsis 2/2 above-poa
-s/p emergency bedside drainage of 1000cc purulent fluids on admission
-s/p emergent surgery with poly and head exchange under the direction of Dr. Estrada on 07/30
-s/p IV vancomycin and zosyn. Switched to Daptomycin. Plan for 6 weeks abx and OP ID f/u.
-pain meds prn leukocytosis improving.
-Wound cultures with MRSA infection susceptibility results noted.
-Blood cultures negative so far
-PICC line and will require prolonged course of antibiotics with possible suppression therapy per ID.
-started on asa for DVT ppx x 4 weeks.
-ID recs
-Ortho following
#Acute blood loss anemia likely 2/2 surgery
-Trend Hgb for now.
-check anemia panel
#GERD, stable, monitor
#Asthma, stable, monitor
DVT Proph--started on aspirin 325mg per ortho
Full Code
PT/OT-outpatient therapy
Anticipated Discharge: Within 24 hours
Subjective/Interval History
-
Date of Service: August 03, 2023
remains with intermittent pain
tolerating diet
Objective Data
-
Labs:
Laboratory Results
08/03/23
04:37
WBC 11.4 H
Hgb 8.3 L
Hct 25.0 L
Plt Count 492 H
Sodium 135
Potassium 3.8
Chloride 103
Carbon Dioxide 27
BUN 19
Creatinine 0.9
Glucose 86
Calcium 8.1 L
Vital Signs:
Vital Signs
Temp Pulse Resp BP Pulse Ox
98.2 F 61 18 104/70 96
08/03/23 07:34 08/03/23 07:34 08/03/23 07:34 08/03/23 07:34 08/03/23 07:34
I&O
08/02/23 08/03/23 08/04/23
06:59 06:59 06:59
Intake Total 1640 / 1640 480 / 480
Output Total 700 / 700 600 / 600
Balance 940 / 940 -120 / -120
Physical Exam
-
General: Well Developed and No Apparent Distress
HEENT: Normocephalic, Atraumatic and Moist Mucous Membranes
Respiratory: Clear to Auscultation
Cardiac: Regular Rhythm and S1/S2; Negative Murmur, Rub or Gallop
GI: Soft, Nontender, Nondistended and Normal Bowel Sounds; Negative Organomegaly
Rectal: Deferred by Provider
Musculoskeletal: No Clubbing, No Cyanosis and Other (R hip aquacell dressing )
Skin: Negative Rash
Neuro: Awake, Oriented, AO x 3 and Nonfocal/Grossly Intact
Psych: Calm
--- NOTE | 2023-08-03 08:27 | PHA.VAN.FU ---
Vancomycin Assessment / Plan
- Assessment
Renal Function: Stable
WBC's are: Trending Down
In the past 24 hrs, patient has been: Afebrile
- Assessment - Therapeutic Drug Monitoring
Extrapolated Cmax (mcg/mL): 25.5
Peak level was drawn: Appropriately (drawn ~1.4H after end of previous infusion)
Extrapolated Cmin (mcg/mL): 12.3
Trough Drawn: Appropriately
Levels were drawn: At steady state (drawn after 4th maintenance dose)
Calculated AUC (mcg*h/mL): 437
Calculated ke: 0.066
Calculated half life (H): 10.5
Calculated Vd (L): 69 (0.75 L/kg)
Calculated Vanc CL (ml/min): 76
- Dosing Plan
Continue: Vanc 1000mg Q12H
- Monitoring Plan
Level(s) appropriate: Recheck trough at minimum of weekly intervals, Repeat sooner for changes in renal function or clinical status
Next Level Due (Date): ~08/09
- Follow Up
Pharmacy will continue to follow.
Vancomycin Follow UP
- -
Patient Age: 52
Patient Sex: Male
Vancomycin Day #: 4
Indication: [facility]
Requesting Provider: Dr Gallegos / Daniel
Pertinent Antimicrobial Allergies:
NKDA
Height / Weight:
Height 5 ft 8 in
Actual Weight 92.59 kg
Pertinent Past Medical History: JES 5 weeks ago, BMI ~31
- Vital Signs / Lab Results
Temp Pulse Resp BP Pulse Ox
98.2 F 61 18 104/70 96
08/03/23 07:34 08/03/23 07:34 08/03/23 07:34 08/03/23 07:34 08/03/23 07:34
Lab Results - Hematology
07/31/23 08/01/23 08/02/23
12:59 08:43 04:32
WBC 16.1 H 21.2 H 16.0 H
08/03/23
04:37
WBC 11.4 H
Lab Results - Chemistry
07/31/23 08/01/23 08/01/23
12:59 06:05 08:43
BUN 30 H 27 H
Creatinine 1.0 1.0
Estimated Creat Clear 95
Albumin 2.9 L 2.2 L
08/02/23 08/03/23
04:32 04:37
BUN 25 H 19
Creatinine 0.9 0.9
Estimated Creat Clear 105 105
Albumin
07/31/23 07/31/23
14:23 15:36
Lactic Acid 0.9 Cancelled
Microbiology Results
07/31/23 15:43 Wound Culture - Final
Hip - Right Staph aureus MRSA
Gram Stain - Final
08/01/23 09:24 Blood Culture - Preliminary
Blood/Venous No Growth in 24 hours- Final report to follow
07/31/23 20:00 Anaerobic Culture - Preliminary
Hip - Right Culture pending. Anaerobic cultures are examined after 3
days incubation. Additional information to follow.
07/31/23 20:00 Wound Culture - Preliminary
Hip - Right Staph aureus MRSA
Gram Stain - Preliminary
07/31/23 20:00 Wound Culture - Preliminary
Hip - Right Staph aureus MRSA
Gram Stain - Preliminary
07/31/23 20:00 Anaerobic Culture - Preliminary
Hip - Right Culture pending. Anaerobic cultures are examined after 3
days incubation. Additional information to follow.
08/01/23 08:43 Blood Culture - Preliminary
Blood/Venous No Growth in 24 hours- Final report to follow
07/31/23 15:36 Anaerobic Culture - Preliminary
Hip - Right Culture pending. Anaerobic cultures are examined after 3
days incubation. Additional information to follow.
07/31/23 15:44 Anaerobic Culture - Preliminary
Hip - Right Culture pending. Anaerobic cultures are examined after 3
days incubation. Additional information to follow.
Therapeutic Drug Monitoring
Vancomycin Peak 23.3 ug/ml (18-26) 08/02/23 20:21
Vancomycin Trough 13.5 ug/ml (5-20) 08/03/23 04:37
[2023-08-03] MEDS: COLACE 100 MG PO ×2 (08:36→20:29)
[2023-08-03] MEDS: ASPIRIN 325 MG PO (08:36)
[2023-08-03] MEDS: SENOKOT 17.1999999999999993 MG PO ×2 (08:36→20:28)
--- NOTE | 2023-08-03 09:11 | W.PN.ID1 ---
Date of Service
Date of Service: August 03, 2023
Today's Communication
Continue antibiotics. See below�
Assessment / Plan
Right hip PJI
- S/P washout 07/31/2023
MRSA infection
Leukocytosis
Tobacco use
Recommendations:
Narrow to daptomycin.
Check baseline CPK
Place PICC
Home infusion sheet has been placed on paper chart.
Will follow-up in the office in approximately 2 weeks time.
����������������������������������������������������������
Chief Complaint
-: Other (Right hip prosthetic joint infection)
Subjective / Review of Systems
Review of Systems: No Fever and No Chills
Vital Signs / Physical Exam
Vital Signs
Vital Signs
Temp Pulse Resp BP Pulse Ox
98.2 F 61 18 104/70 96
08/03/23 07:34 08/03/23 07:34 08/03/23 07:34 08/03/23 07:34 08/03/23 07:34
Physical Exam
Constitutional: No Acute Distress, Comfortable and Non-toxic
Eyes: Sclera Anicteric
Cardiovascular: S1/S2; Negative S3/S4
Pulmonary: Non Labored; Negative Wheezes
Gastrointestinal: Soft, Non Tender and Non Distended
Wound: Other (right hip area dressed.)
Neurological: Awake and Alert
Psychological: Calm
Objective Data
Lab Data
Lab Results
08/03/23 04:37
08/03/23 04:37
ESR 52 mm/hour (0-20) H 07/31/23 12:59
Estimated Creat Clear 105 ml/min 08/03/23 04:37
Lactic Acid Cancelled 07/31/23 15:36
Total Bilirubin 1.3 mg/dl (0.2-1.3) 07/31/23 12:59
AST 42 U/L (17-59) 07/31/23 12:59
ALT 46 U/L (0-50) 07/31/23 12:59
Alkaline Phosphatase 173 U/L (38-126) H 07/31/23 12:59
C-Reactive Protein 223.10 mg/L (0.0-10.00) H 07/31/23 12:59
Most recent labs reviewed.
Micro Results:
08/01/23 08:43 Blood Culture - Preliminary
Blood/Venous No Growth in 48 hours- Final report to follow
07/31/23 15:43 Wound Culture - Final
Hip - Right Staph aureus MRSA
Gram Stain - Final
08/01/23 09:24 Blood Culture - Preliminary
Blood/Venous No Growth in 24 hours- Final report to follow
07/31/23 20:00 Anaerobic Culture - Preliminary
Hip - Right Culture pending. Anaerobic cultures are examined after 3
days incubation. Additional information to follow.
07/31/23 20:00 Wound Culture - Preliminary
Hip - Right Staph aureus MRSA
Gram Stain - Preliminary
07/31/23 20:00 Wound Culture - Preliminary
Hip - Right Staph aureus MRSA
Gram Stain - Preliminary
07/31/23 20:00 Anaerobic Culture - Preliminary
Hip - Right Culture pending. Anaerobic cultures are examined after 3
days incubation. Additional information to follow.
07/31/23 15:36 Anaerobic Culture - Preliminary
Hip - Right Culture pending. Anaerobic cultures are examined after 3
days incubation. Additional information to follow.
07/31/23 15:44 Anaerobic Culture - Preliminary
Hip - Right Culture pending. Anaerobic cultures are examined after 3
days incubation. Additional information to follow.
Wound/abscess/other Cult Final 07/31/23
1. Staph aureus MRSA
M.I.C. RX
--------- ---
Amoxicillin/Potas. Clavulanate R
Ampicillin >8 R
Clindamycin <=0.5 S
Daptomycin <=0.5 S
Gentamicin <=4 S
Erythromycin >4 R
Levofloxacin >4 R
Oxacillin >2 R
Tetracycline <=4 S
Trimethoprim/Sulfamethoxazole <=0.5/9.5 S
Vancomycin 1 S
Imaging:
07/31/2023 CT right hip with IV contrast: A subtle linear fracture through the right posterior and superior acetabulum is noted. A large low-density collection surrounding the proximal right femur and with a communicating extension into the lateral
subcutaneous tissue is noted. Please see full dictation for additional detail. Film personally viewed.
[2023-08-03 10:03] LABS: Creatine Phosphokinase 53 U/L (55-170)
[2023-08-03 10:23] LABS: Iron 67 ug/dl (49-181)
[2023-08-03 10:32] LABS: Percent Saturation 37 % (20-50); Total Iron Binding Capacity 179 ug/dl (261-462)
[2023-08-03] MEDS: CUBICIN 20 MG IV (10:54)
[2023-08-03 12:12] VITALS: BP 115/58
--- NOTE | 2023-08-03 12:22 | CM ---
Addendum entered by Lora Lomax 08/03/23 14:54:
Chest x-ray result faxed to [facility]
Addendum entered by Lora Lomax 08/03/23 14:47:
Out of pocket cost information for home IV infusion through 09/13 was shared with patient: yearly deductible $6000.00; out of pocket deductible $9,450.00; Cost for infusion $1078/week until $6000.00 has been met then coverage is 90%.
If hospital costs meet deductible, infusion out of pocket is $107/week
Patient agreeable with home infusion plan
Addendum entered by Lora Lomax 08/03/23 12:34:
PT recommended home health for PT. Spoke with Chanell Cramer, [facility]. [facility] will coordinate with [facility]
Original Note:
Met with patient and spouse at the bedside to discuss discharge plan. Per Attending, anticipated discharge is tomorrow.
Plan: discharge to Home with Home Care and Home Infusion services
Referral sent to Reanna from [facility] via phone; Demographic/Insurance and Clinical Information including script from ID faxed to #[phone]
Chanell Cramer from [facility] notified of discharge plan via phone; left a voice mail
[2023-08-03 13:08] LABS: Folate 4.7 ng/ml (2.76-20); Vitamin B12 > 1000 pg/ml (239-931)
[2023-08-03] MEDS: ROXICODONE 5 MG PO (13:29)
[2023-08-03 15:31] VITALS: BP 102/59
[2023-08-03] MEDS: ROXICODONE 10 MG PO ×2 (18:50→23:54)
[2023-08-03 22:53] VITALS: BP 105/62
[2023-08-04] MEDS: DILAUDID 0.5 MG IV ×2 (02:40→08:30)
[2023-08-04] MEDS: ROXICODONE 10 MG PO ×2 (05:19→12:56)
[2023-08-04 06:58] LABS: % Basophils 0.5 % (0-2); % Eosinophils 2.7 % (0-6); % Lymphocytes 24.8 % (20.5-51.1); % Monocytes 6.4 % (1.7-9.3); % Neutrophils 63.6 % (42.2-75.2); Absolute Basophils 0.1 10^3/uL (0-0.2); Absolute Eosinophils 0.3 10^3/uL (0-0.7); Absolute Immature Granulocytes 0.2 10^3/uL (0-0.05); Absolute Lymphocytes 2.9 10^3/uL (1.2-3.4); Absolute Monocytes 0.8 10^3/uL (0.1-0.6); Absolute Neutrophils 7.4 10^3/uL (1.4-6.5); Hematocrit 24.2 % (39.0-52.0); Hemoglobin 8.1 g/dL (13.0-18.0); Mean Corp Hgb Conc. 33.5 g/dL (33.0-37.0); Mean Corpuscular Hgb 32.9 pg (27.0-31.0); Mean Corpuscular Volume 98.4 fL (80.0-94.0); Mean Platelet Volume 9.9 fL (7.4-10.4); Nucleated Red Blood Cells % 0 % (-); Platelet Count 506 10^3/uL (130-400); Red Blood Cell Count 2.46 10^6/uL (4.70-6.10); Red Cell Dist. Width 14.3 % (11.5-14.5); White Blood Cell Count 11.6 10^3/uL (4.8-10.8)
[2023-08-04 07:10] LABS: Blood Urea Nitrogen 18 mg/dl (9-20); Calcium 8.1 mg/dl (8.4-10.2); Carbon Dioxide 27 mmol/L (22-30); Chloride 104 mmol/L (98-107); Estimated Creatinine Clearance 118 ml/min; Glucose 87 mg/dl (70-99); Potassium 3.9 mmol/L (3.5-5.1); Sodium 136 mmol/L (135-145); eGFR > 60.00
[2023-08-04 07:35] VITALS: BP 100/48
[2023-08-04] MEDS: ASPIRIN 325 MG PO (08:22)
[2023-08-04] MEDS: COLACE 100 MG PO (08:22)
[2023-08-04] MEDS: SENOKOT 17.1999999999999993 MG PO (08:22)
--- NOTE | 2023-08-04 08:36 | W.PN.ORTHO ---
Today's Communication / Plan
-
52 yo M POD #4 right hip I&D with poly and head exchange under the direction of Dr. Estrada.� He feels improved compared to yesterday.
--Dressing is c/d/i. No drainage. Mild diffuse swelling. Dressings dry
--Partial weight bearing to RLE with walker. Posterior hip precautions. We appreciate the assistance of PT/OT.
--Recommend ASA 325 mg daily x4 weeks for DVT ppx.
--Continue current pain management regimen. Ice and elevation for edema control.
--Cultures growing out MRSA.� Appreciate Infectious Disease recommendations for IV abx - Daptomycin x 6 weeks.
--Hgb stable.
--Maintain Aquacel dressing until 7-10 days post-op. Staple removal at 2 weeks post-op.
--Case management consult for discharge planning.
--Orthopedics will continue to follow along.
Assessment
.
Distal Motor Intact: Yes
Dressing:
Clean, dry and intact.
Assessment:
52 yo M POD #4 right hip I&D with poly and head exchange under the direction of Dr. Estrada.� He feels improved compared to yesterday.
--Dressing is c/d/i. No drainage. Mild diffuse swelling. Dressings dry
--Partial weight bearing to RLE with walker. Posterior hip precautions. We appreciate the assistance of PT/OT.
--Recommend ASA 325 mg daily x4 weeks for DVT ppx.
--Continue current pain management regimen. Ice and elevation for edema control.
--Cultures growing out MRSA.� Appreciate Infectious Disease recommendations for IV abx. Plan is for Daptomycin x 6 weeks.
--Hgb stable.
--Maintain Aquacel dressing until 7-10 days post-op. Staple removal at 2 weeks post-op.
--Case management consult for discharge planning.
--Orthopedics will continue to follow along.
Plan
.
Surgery / Date: R hip I&D with poly exchangeSean, 07/30
DVT Prophylaxis: Aspirin
Activity:
Out of bed.
PT/OT
Discharge Plan: Home w/ VN
Subjective
.
.:
Patient resting comfortably. reports pain overnight was much better. No specific concerns at this time. Has been set up with PICC line.
Vital Signs and Labs
.
Vital Signs and Labs:
Lab Results
08/04/23 06:37
08/04/23 06:38
Temp Pulse Resp BP Pulse Ox
97.9 F 76 16 100/48 95
08/04/23 07:35 08/04/23 07:35 08/04/23 07:35 08/04/23 07:35 08/04/23 07:35
Non-invasive Hgb result: 9.6
Physical Exam
-
Right hip: Mild diffuse swelling. No significant warmth, no erythema. Dressing is c/d/i, no drainage. Calf soft and non tender to palpation. N/v intact distally.
[2023-08-04] MEDS: CUBICIN 20 MG IV (11:12)
--- NOTE | 2023-08-04 11:45 | W.PN.HOSP.TC ---
Today's Communication/Plan
-
IV daptomycin
OP labs
pain control
ortho f/u
OP therapy
Assessment / Plan
Assessment / Plan
The patient is a 52 yo male with PMH significant for arthritis right hip, obesity status post sleeve gastrectomy, GERD, recent right hip replacement 06/24/[address] Chakraborty, who had a fall on 07/22/23 and admitted to [facility] where he was found to
have periprosthetic acetabular fracture with overlying fluid collection concerning for post-operative seroma (CT imaging at that time), presenting to the ED today with severe 10/10 right hip pain and swelling.� He has been taking oral Dilaudid for
the past several days with no relief. He was discharged from [facility] on 07/23/23 after non-operative management and had follow-up with Ortho in office 5 days ago for seroma and advised partial weightbearing with walker assistance, however pain
persisted and worsened associated with swelling and chills. No fever, no CP, no SOB, no n/v/d, no dysuria. Ortho performed bedside tap with 1000 mL output from right hip of purulent drainage which was cultured.
CT findings: There is a large low-density collection, which is mainly lateral and posterior to the right hip replacement, with a small component also seen anteriorly. Much of this collection is surrounding the right proximal femur. There is however
a component of the collection which extends laterally into the lateral subcutaneous soft tissues. There are small foci of air within the anterior aspect of the collection, which could be from previous aspiration, but could also be from air forming
infection.
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
#Sepsis 2/2 above-poa
-s/p emergency bedside drainage of 1000cc purulent fluids on admission
-s/p emergent surgery with poly and head exchange under the direction of Dr. Estrada on 07/30
-s/p IV vancomycin and zosyn. Switched to Daptomycin. Plan for 6 weeks abx and OP ID f/u.
-pain meds prn. Weekly lab as OP with VN.
-Wound cultures with MRSA infection susceptibility results noted.
-Blood cultures negative so far
-PICC line and will require prolonged course of antibiotics with possible suppression therapy per ID. OP ID f/u in 2 weeks.
-started on asa for DVT ppx x 4 weeks.
-ID recs
-Ortho following
#Acute blood loss anemia likely 2/2 surgery
-Trend Hgb for now.
-iron stores adequate.
#GERD, stable, monitor
#Asthma, stable, monitor
DVT Proph--started on aspirin 325mg per ortho
Full Code
PT/OT-outpatient therapy
d/w with spouse at bedside in details >15minutes. Answered multiple questions to there satisfaction.
More than 30 minutes spent in discharge including
Final examination of the patient
Summarizing hospital stay
Instructions for continuing care to all relevant caregivers
Preparation of discharge records, prescriptions, and referral forms
Total time spent (in minutes): 52
Anticipated Discharge: Today
Subjective/Interval History
-
Date of Service: August 04, 2023
states pain has improved
had bm earlier today
Vn coming to teach infusion
Objective Data
-
Labs:
Laboratory Results
08/04/23 08/04/23
06:37 06:38
WBC 11.6 H
Hgb 8.1 L
Hct 24.2 L
Plt Count 506 H
Sodium 136
Potassium 3.9
Chloride 104
Carbon Dioxide 27
BUN 18
Creatinine 0.8
Glucose 87
Calcium 8.1 L
Vital Signs:
Vital Signs
Temp Pulse Resp BP Pulse Ox
97.9 F 76 16 100/48 95
08/04/23 07:35 08/04/23 07:35 08/04/23 07:35 08/04/23 07:35 08/04/23 07:35
I&O
08/03/23 08/04/23 08/05/23
06:59 06:59 06:59
Intake Total 480 / 480 1979
Output Total 600 / 600
Balance -120 / -120 1979
Physical Exam
-
General: Well Developed and No Apparent Distress
HEENT: Normocephalic, Atraumatic and Moist Mucous Membranes
Respiratory: Clear to Auscultation
Cardiac: Regular Rhythm and S1/S2; Negative Murmur, Rub or Gallop
GI: Soft, Nontender, Nondistended and Normal Bowel Sounds; Negative Organomegaly
Rectal: Deferred by Provider
Musculoskeletal: No Clubbing, No Cyanosis and Other (R hip aquacell dressing -mild swelling. )
Skin: Negative Rash
Neuro: Awake, Alert, Oriented, AO x 3, No Motor Deficits and Nonfocal/Grossly Intact
Psych: Calm
--- NOTE | 2023-08-04 11:58 | W.DCSUMMARY ---
Discharge Summary
Discharge Data
Date of Admission: 07/31/23
Date of Discharge: 08/04/23
-
Pending Results: No
Hospital Course
52 yo male with PMH significant for arthritis right hip, obesity status post sleeve gastrectomy, GERD, recent right hip replacement 06/24/[address] Chakraborty, who had a fall on 07/22/23 and admitted to [facility] where he was found to have periprosthetic
acetabular fracture with overlying fluid collection concerning for post-operative seroma (CT imaging at that time), presenting to the ED today with severe 10/10 right hip pain and swelling. CT findings: There is a large low-density collection, which
is mainly lateral and posterior to the right hip replacement, with a small component also seen anteriorly. Much of this collection is surrounding the right proximal femur. There is however a component of the collection which extends laterally into
the lateral subcutaneous soft tissues. There are small foci of air within the anterior aspect of the collection, which could be from previous aspiration, but could also be from air forming infection.�s/p emergency bedside drainage of 1000cc purulent
fluids on admission. -s/p emergent surgery with poly and head exchange under the direction of Dr. Estrada on 07/30. -s/p IV vancomycin and zosyn. Switched to Daptomycin. Plan for 6 weeks abx and OP ID f/u.Wound cultures with MRSA infection
susceptibility results noted. Started on asa for DVT ppx x 4 weeks. Physical occupational and local outpatient therapy. Patient also with acute blood loss anemia due to surgery. Hemoglobin stable and requiring transfusion. Patient was
transported to ED for discharge planning home and all questions were answered.
Discharge Plan
-
Patient Disposition: Home with Home Care
Discharge Diagnosis/Procedures: Acute prosthetic infection right hip
Sepsis
status post emergency bedside drainage of 1000cc purulent fluids on admission
status post emergent surgery with poly and head exchange under the direction of Dr. Estrada on 07/31/23
Acute blood loss anemia likely 2/2 surgery
Condition: Fair
Diet: Regular
Activity: With assistance and As tolerated
Driving Restrictions: No driving
Blood Work: cbc, bmp and CK in 1 week via primary doctor
Other Services: VN and PT
Activity Restrictions/Additional Instructions:
-Partial weight bearing to RLE with walker. Posterior hip precautions.
-Maintain Aquacel dressing until 7-10 days post-op. Staple removal at 2 weeks post-op.
Referrals:
Joselito Estrada MD [Active] - in one to two weeks (call the office to make appt. post op f/u. )
Nehemiah Sanchez DO [Active] - in two weeks (call to make appt. )
Alexis Odell PA-C [Family Provider] - in less than 1 week
Prescriptions:
New
docusate sodium 100 mg Capsule
100 mg PO BID 20 Days Qty: 40 0RF
DAPTOmycin [Cubicin] 1000 MG
Syringe [Syringe-Pump] 0 ML
As Directed mls/hr IV Q24H
Ordered By: Deacon Persaud MD
Last Taken: 08/04/23 11:12 20 mls
oxycodone 10 mg Tablet
10 mg PO Q6H PRN (Reason: mod pain) Qty: 30 0RF
naloxone [Narcan] 4 mg/actuation spray,non-aerosol
4 mg intranasal Q2M PRN (Reason: opioid overdose) Qty: 2 0RF
Continued
Centrum Adults 12 mcg Tablet,Chewable
1 tab PO DAILY
sennosides [senna] 8.6 mg Tablet
8.6 mg PO BIDPRN PRN (Reason: constipation)
albuterol sulfate [ProAir HFA] 90 mcg/actuation Hfa Aerosol Inhaler
2 puff INHALATION R QIDPRN PRN (Reason: sob)
hydromorphone 4 mg Tablet
4 mg PO Q4HPRN PRN (Reason: severe pain)
aspirin 325 mg Tablet
325 mg PO DAILY 30 Days Qty: 30 0RF
Changed
acetaminophen [Tylenol] 325 mg Tablet
650 mg PO Q6H 14 Days Qty: 0 0RF
Discharge Orders:
Discharge Patient (As Directed); Ordered 08/04/23
Ordered By: Deacon Persaud
Discharge Date and Time
Discharge Date/Time: 08/04/23 13:21
Print Language: MAURITANIAN
--- NOTE | 2023-08-04 12:07 | W.[place]-PDMP ---
[place]-PDMP
-
Checked the [place]- Prescription Drug Monitoring Program website, no red flags identified; safe to proceed with prescription.
--- NOTE | 2023-08-04 13:13 | W.PN.ID1 ---
Date of Service
Date of Service: August 04, 2023
Today's Communication
Continue antibiotics.
Assessment / Plan
Right hip PJI
- S/P washout 07/31/2023
MRSA infection
Leukocytosis
Tobacco use
Recommendations:
Continue with daptomycin. Baseline CPK normal.
PICC placed.
Home infusion sheet has been placed on paper chart.
Will follow-up in the office in approximately 2 weeks time.
����������������������������������������������������������
Chief Complaint
-: Other (Right hip prosthetic joint infection)
Subjective / Review of Systems
Review of Systems: No Fever and No Chills
Vital Signs / Physical Exam
Vital Signs
Vital Signs
Temp Pulse Resp BP Pulse Ox
97.9 F 76 16 100/48 95
08/04/23 07:35 08/04/23 07:35 08/04/23 07:35 08/04/23 07:35 08/04/23 07:35
Physical Exam
Constitutional: No Acute Distress, Comfortable and Non-toxic
Eyes: Sclera Anicteric
Cardiovascular: S1/S2; Negative S3/S4
Pulmonary: Non Labored
Gastrointestinal: Soft and Non Distended
Wound: Other (Right hip area dressed. No significant strikethrough. No periwound erythema.)
Neurological: Awake and Alert
Lines: PICC
Objective Data
Lab Data
Lab Results
08/04/23 06:37
08/04/23 06:38
ESR 52 mm/hour (0-20) H 07/31/23 12:59
Estimated Creat Clear 118 ml/min 08/04/23 06:38
Lactic Acid Cancelled 07/31/23 15:36
Total Bilirubin 1.3 mg/dl (0.2-1.3) 07/31/23 12:59
AST 42 U/L (17-59) 07/31/23 12:59
ALT 46 U/L (0-50) 07/31/23 12:59
Alkaline Phosphatase 173 U/L (38-126) H 07/31/23 12:59
C-Reactive Protein 223.10 mg/L (0.0-10.00) H 07/31/23 12:59
Most recent labs reviewed.
Micro Results:
07/31/23 20:00 Anaerobic Culture - Preliminary
Hip - Right NO ANAEROBES ISOLATED
07/31/23 20:00 Anaerobic Culture - Preliminary
Hip - Right NO ANAEROBES ISOLATED
08/01/23 09:24 Blood Culture - Preliminary
Blood/Venous No Growth in 72 hours- Final report to follow
08/01/23 08:43 Blood Culture - Preliminary
Blood/Venous No Growth in 72 hours- Final report to follow
07/31/23 15:36 Anaerobic Culture - Final
Hip - Right NO ANAEROBES ISOLATED
07/31/23 15:44 Anaerobic Culture - Final
Hip - Right NO ANAEROBES ISOLATED
07/31/23 20:00 Wound Culture - Preliminary
Hip - Right Staph aureus MRSA
Gram Stain - Preliminary
07/31/23 15:43 Wound Culture - Final
Hip - Right Staph aureus MRSA
Gram Stain - Final
07/31/23 20:00 Wound Culture - Preliminary
Hip - Right Staph aureus MRSA
Gram Stain - Preliminary
Wound/abscess/other Cult Final 07/31/23
1. Staph aureus MRSA
M.I.C. RX
--------- ---
Amoxicillin/Potas. Clavulanate R
Ampicillin >8 R
Clindamycin <=0.5 S
Daptomycin <=0.5 S
Gentamicin <=4 S
Erythromycin >4 R
Levofloxacin >4 R
Oxacillin >2 R
Tetracycline <=4 S
Trimethoprim/Sulfamethoxazole <=0.5/9.5 S
Vancomycin 1 S
Imaging:
07/31/2023 CT right hip with IV contrast: A subtle linear fracture through the right posterior and superior acetabulum is noted. A large low-density collection surrounding the proximal right femur and with a communicating extension into the lateral
subcutaneous tissue is noted. Please see full dictation for additional detail. Film personally viewed.
--- NOTE | 2023-08-04 13:30 | CM ---
Reviewed the chart notes and spoke with the patient and his spouse at the bedside. The patient is being discharged on IV abx via [facility]. [facility] Liaison was in to education on IV administration. Patient's spouse to provide
transportation to home. CM continues to be available to patient/family and is monitoring medical plan for needs at discharge.
Plan: Discharge to home with IV abx via [facility] and home VN through [facility].
[facility] .
== END 2023-08-04 13:21 | disposition home health service (06) | DRG 466 ==
LOC: 2 NORTH 16:52
PROVIDERS: Physician Assistant; Physician Assistant Surgical; Radiology Diagnostic Radiology; Specialist; ADMITTING PHYSICIAN Internal Medicine; ATTENDING PHYSICIAN Hospitalist; CONSULT PHYSICIAN Orthopaedic Surgery; EMERGENCY PHYSICIAN Emergency Medicine; FAMILY PHYSICIAN Physician Assistant Medical; OTHER PHYSICIAN Internal Medicine Infectious Disease
PROC: 0S990ZX Drainage of Right Hip Joint, Open Approach, Diagnostic (ICD-10-PCS; 2023-07-31)
PROC: 0SP909Z Removal of Liner from Right Hip Joint, Open Approach (ICD-10-PCS; 2023-07-31)
PROC: 0S990ZZ Drainage of Right Hip Joint, Open Approach (ICD-10-PCS; 2023-07-31)
PROC: 0SRR01Z Replacement of Right Hip Joint, Femoral Surface with Metal Synthetic Substitute, Open Approach (ICD-10-PCS; 2023-07-31)
PROC: 0SUA09Z Supplement Right Hip Joint, Acetabular Surface with Liner, Open Approach (ICD-10-PCS; 2023-07-31)
PROC: 0SPR0JZ Removal of Synthetic Substitute from Right Hip Joint, Femoral Surface, Open Approach (ICD-10-PCS; 2023-07-31)
PROC: 02HV33Z Insertion of Infusion Device into Superior Vena Cava, Percutaneous Approach (ICD-10-PCS; 2023-08-03)
DX: T84.51XA Infection and inflammatory reaction due to internal right hip prosthesis, initial encounter (principal); A41.02 Sepsis due to Methicillin resistant Staphylococcus aureus; S32.401A Unspecified fracture of right acetabulum, initial encounter for closed fracture; M00.051 Staphylococcal arthritis, right hip; D62 Acute posthemorrhagic anemia; E66.9 Obesity, unspecified; K21.9 Gastro-esophageal reflux disease without esophagitis; J45.909 Unspecified asthma, uncomplicated; F17.210 Nicotine dependence, cigarettes, uncomplicated; M97.01XA Periprosthetic fracture around internal prosthetic right hip joint, initial encounter; M16.11 Unilateral primary osteoarthritis, right hip; F12.90 Cannabis use, unspecified, uncomplicated; F10.90 Alcohol use, unspecified, uncomplicated; Y79.2 Prosthetic and other implants, materials and accessory orthopedic devices associated with adverse incidents; Y83.1 Surgical operation with implant of artificial internal device as the cause of abnormal reaction of the patient, or of later complication, without mention of misadventure at the time of the procedure; W19.XXXA Unspecified fall, initial encounter; Y93.9 Activity, unspecified; Y92.59 Other trade areas as the place of occurrence of the external cause; Z98.84 Bariatric surgery status; Z68.34 Body mass index [BMI] 34.0-34.9, adult
CPT/HCPCS: 71045; 73502; 73701; 80048; 80053; 80202; 82040; 82550; 82607; 82728; 82746; 83540; 83550; 83605; 85025; 85652; 86140; 87015; 87040; 87070; 87075; 87147; 87186; 87205; 89051; 96374; 96376; 97110; 97116; 97162; 97166; 97530; 97535; 99285; 99406; C1776; J0878; Q9967

== ENCOUNTER 2023-08-09 09:17 | Inpatient (IN) | payer OTHER, SELFPAY ==
[2023-08-08 18:38] VITALS: BP 111/56
[2023-08-08 18:52] LABS: % Basophils 0.7 % (0-2); % Eosinophils 2.5 % (0-6); % Immature Granulocytes 0.4 % (0-0.5); % Lymphocytes 25.4 % (20.5-51.1); % Monocytes 6.8 % (1.7-9.3); % Neutrophils 64.2 % (42.2-75.2); Absolute Basophils 0.1 10^3/uL (0-0.2); Absolute Eosinophils 0.3 10^3/uL (0-0.7); Absolute Lymphocytes 2.7 10^3/uL (1.2-3.4); Absolute Monocytes 0.7 10^3/uL (0.1-0.6); Absolute Neutrophils 6.8 10^3/uL (1.4-6.5); Hematocrit 27.2 % (39.0-52.0); Hemoglobin 9.3 g/dL (13.0-18.0); Mean Corp Hgb Conc. 34.2 g/dL (33.0-37.0); Mean Corpuscular Hgb 33.7 pg (27.0-31.0); Mean Corpuscular Volume 98.6 fL (80.0-94.0); Mean Platelet Volume 9.1 fL (7.4-10.4); Nucleated Red Blood Cells % 0 % (-); Platelet Count 675 10^3/uL (130-400); Red Blood Cell Count 2.76 10^6/uL (4.70-6.10); Red Cell Dist. Width 14.9 % (11.5-14.5); White Blood Cell Count 10.7 10^3/uL (4.8-10.8)
[2023-08-08 19:13] LABS: ALT (SGPT) 37 U/L (0-50); AST (SGOT) 32 U/L (17-59); Albumin 3.1 g/dl (3.5-5.0); Alkaline Phosphatase 97 U/L (38-126); Blood Urea Nitrogen 20 mg/dl (9-20); Calcium 8.6 mg/dl (8.4-10.2); Carbon Dioxide 26 mmol/L (22-30); Chloride 105 mmol/L (98-107); Glucose 92 mg/dl (70-99); Sodium 135 mmol/L (135-145); Total Bilirubin 0.5 mg/dl (0.2-1.3); Total Protein 6.3 g/dl (6.3-8.2); eGFR > 60.00
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
[2023-08-09] VITALS (7 sets, daily range): BP systolic 100–117; BP diastolic 55–66; BMI 31.2
[2023-08-09] MEDS: DILAUDID 4 MG PO (00:11)
[2023-08-09 00:28] LABS: Creatine Phosphokinase 92 U/L (55-170)
[2023-08-09 00:34] LABS: Erythrocyte Sed Rate 86 mm/hour (0-20)
--- NOTE | 2023-08-09 03:00 | EDRN ---
Report received, patient is sleeping at his time.
--- NOTE | 2023-08-09 05:21 | EDRN ---
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 Patients wound draining some, changed his sheet and gown, while in there patient asking for something for pain, spoke
with Dr. Hui who stated he could have his Oxycodone that he is on at home.
[2023-08-09] MEDS: ROXICODONE 10 MG PO ×3 (05:25→19:51)
--- NOTE | 2023-08-09 06:21 | EDRN ---
PA student in to bedside to speak with patient, after Dr. Hui spoke with ortho, they would like to keep him in the hospital
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
--- NOTE | 2023-08-09 10:11 | W.PN.UPDATE ---
Update Note
Progress Note Update
52-year-old male who is status post right total hip arthroplasty with Dr. Chakraborty with noted periprosthetic infection status post irrigation debridement and liner exchange with Dr. Estrada with return of drainage from his right wound.
Patient is planned for operative invention of right hip revision arthroplasty versus exchange with Dr. Chakraborty
-May have diet but n.p.o. at midnight
-May continue to be weightbearing as tolerated to right lower extremity for the time being with assist devices
-Antibiotics for cement spacer on order
-Consent obtained
--- NOTE | 2023-08-09 11:28 | CM ---
Addendum entered by Suha Vickers RN 08/09/23 15:13:
Cm met with patient and in room. Patient confirmed demographics. Patient confirmed that he had been known to [facility]. He is agreeable to [facility]. Referral sent via [facility].
CM confirmed that patient does not have a history of placement. Patient is active with his PCP. Patient uses [facility] for medication services.
PLAN: home with [facility].
Original Note:
[facility] was on service with patient prior to admission.
[2023-08-09 11:29] LABS: Iron 38 ug/dl (49-181)
[2023-08-09] MEDS: SENOKOT 8.59999999999999964 MG PO ×2 (11:36→19:51)
[2023-08-09] MEDS: COLACE 100 MG PO ×2 (11:36→19:51)
[2023-08-09] MEDS: MIRALAX 17 GRAMS PO (11:36)
[2023-08-09] MEDS: PEPCID 20 MG PO ×2 (11:36→19:51)
[2023-08-09] MEDS: VITAMIN B1 200 MG PO (11:36)
[2023-08-09 11:39] LABS: Percent Saturation 15 % (20-50); Total Iron Binding Capacity 252 ug/dl (261-462)
[2023-08-09] MEDS: DILAUDID 0.5 MG IV ×3 (12:55→22:38)
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
[2023-08-09 14:12] LABS: Vitamin B12 996 pg/ml (239-931)
[2023-08-09 15:42] LABS: Marijuana Positive (Negative); Opiates Positive (Negative)
[2023-08-09 15:43] LABS: Amphetamines Negative (Negative); Barbiturates Negative (Negative); Benzodiazepines Negative (Negative); Buprenorphine Negative (Negative); Cocaine Negative (Negative); Methadone Negative (Negative); Methamphetamines Negative (Negative); Phencyclidine Negative (Negative); Tricyclic Antidepressants Negative (Negative)
--- NOTE | 2023-08-09 15:51 | PTCARENOTE ---
Pt. admitted from ED. VSS. R hip saturated. ID at bedside. Awaiting further instructions from ortho on wound care changes. Family updated at bedside.
--- NOTE | 2023-08-09 16:07 | CON.ID ---
Consultation
-
Date/Time Consultation Requested: 08/09/2023 1034
Date/Time Consultation Performed: 08/09/2023 1600
Requesting Provider: Dr. Ruvalcaba
Performing Provider: Dr. Sanchez
Reason for Consultation: Right hip PJI
Chief Complaint / Past History
History of Present Illness
Josue Taylor is a 52-year-old man being evaluated at the request of Dr. Ruvalcaba in regards to right hip PJI. History is obtained from chart review, along with patient interview, and review of records contained in the hospital EMR system.
The patient is known to the Infectious Disease service, having been seen on 08/01/2023 in consultation.
Patient reports that he underwent right hip replacement on 06/27/2023. He reports in the immediate postop period he did well and was ambulating without a cane. He reports that he followed with Orthopedics and things were 'looking good', but on
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 He was taken to [facility] where a CT scan evidently showed some type of fracture. Ultimately he was discharged, but notes that
he had ongoing swelling and discomfort in the right hip area. He was seen again in follow-up by Ortho secondary to ongoing pain. The discomfort increased and he came to the hospital. CT imaging showed a collection surrounding the proximal right
femur. Collection was aspirated with the finding of purulence, and the patient was taken to the OR for washout. Or cultures ultimately revealed the presence of MRSA, and the patient was discharged to home on 08/03, to continue with a course of
daptomycin.
The patient reports that he was doing well, but yesterday he developed increasing drainage while at physical therapy, with swelling of the area. He presents back to the hospital secondary to significant drainage and ongoing discomfort. During this
period of time he denies any fevers or chills. He reports no issues with the daptomycin infusions.
Past History
Past Medical History: Asthma
Additional Past Surgical History:
Appendectomy
Right hip replacement (06/27/2023)
Sleeve gastrectomy
Allergy History:
No Known Allergies Allergy (Verified 08/08/23 18:40)
Medications Reviewed: Yes
Current Antibiotics:
Daptomycin as an outpatient.
Social History
Tobacco: Former Smoker
Alcohol: Occasional
Drug: Marijuana
Personal:
Living: With Family
Employment: Employed
Family History
Family History: Not Pertinent
Review of Systems
Vital Signs
Temp Pulse Resp BP Pulse Ox
97.9 F 70 16 114/60 95
08/09/23 15:26 08/09/23 15:26 08/09/23 15:26 08/09/23 15:26 08/09/23 15:26
Physical Exam
Physical Exam
Constitutional: No Acute Distress, Comfortable and Non-toxic
Head: Normocephalic
Eyes: Pupils Equal, Pupils Round, No Conjunctival Hemorrhage and Sclera Anicteric
Oral: No Thrush
Cardiovascular: Regular Rate and S1/S2; Negative S3/S4
Pulmonary: Clear; Negative Wheezes or Rales
Gastrointestinal: Soft, Non Tender, Non Distended and Normal Bowel Sounds
Wound: Other (Right hip wound dressed, with fluid layering in the dressing. Little periwound erythema.)
Neurological: Awake and Alert
Psychological: Calm
.
Lab / Diagnostic Study Results
08/08/23 18:48
08/08/23 18:48
Abs Immat Gran (auto) 0.0 10^3/uL (0-0.05) 08/08/23 18:48
Absolute Neuts (auto) 6.8 10^3/uL (1.4-6.5) H 08/08/23 18:48
Absolute Lymphs (auto) 2.7 10^3/uL (1.2-3.4) 08/08/23 18:48
Absolute Monos (auto) 0.7 10^3/uL (0.1-0.6) H 08/08/23 18:48
Absolute Basos (auto) 0.1 10^3/uL (0-0.2) 08/08/23 18:48
Immature Gran % 0.4 % (0-0.5) 08/08/23 18:48
Neutrophils % 64.2 % (42.2-75.2) 08/08/23 18:48
Lymphocytes % 25.4 % (20.5-51.1) 08/08/23 18:48
Monocytes % 6.8 % (1.7-9.3) 08/08/23 18:48
Eosinophils % 2.5 % (0-6) 08/08/23 18:48
Basophils % 0.7 % (0-2) 08/08/23 18:48
ESR 86 mm/hour (0-20) H 08/08/23 18:48
C-Reactive Protein 54.90 mg/L (0.0-10.00) H 08/08/23 18:48
Microbiology Results
Micro:
SPEC #: [id number] PRISCA: 07/31/23-1542 STATUS: COMP REQ #: [id number]
RECD: 07/31/23-[address]: Arlin NEWSOME,Marcelo Gary
SOURCE: HIP ENTR: 07/31/23-[address]: Nehemiah Winter DO
SPDESC: Alexis Jewell
ORDERED: Wound/Other
COMMENTS: Received in blood culture bottles
QUERIES: Comment R hip aspiration
Date Specimen was Collected 07/31/23
Time Specimen was Collected 1532
Procedure Result Verified
Wound/abscess/other Cult Final 08/03/23-822
Staph aureus MRSA
Isolation Precautions Required
[place] [phone] on 08/01/23 at 1216 by ANISHA
Gram stain of aerobic blood culture bottle reveals
Gram Positive Cocci in clusters
CRITICAL VALUE [place] [id number]
on 08/01/23 at 0753 by ANISHA. COPY PRINTED to printer #[id number]
.
Organism 1 Staph aureus MRSA

* This is an ammended result due to request
for additional results. *

A prior result that was reported as final has been changed.
1. Staph aureus MRSA
M.I.C. RX
--------- ---
Amoxicillin/Potas. Clavulanate R
Ampicillin >8 R
Clindamycin <=0.5 S
Daptomycin <=0.5 S
Gentamicin <=4 S
Erythromycin >4 R
Levofloxacin >4 R
Oxacillin >2 R
Tetracycline <=4 S
Trimethoprim/Sulfamethoxazole <=0.5/9.5 S
Vancomycin 1 S
Assessment / Plan
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
Ongoing wound drainage
Recommendations:
Continue with daptomycin. Given ongoing drainage will add empiric Zosyn.
Await further input from Orthopedics regarding ongoing care and/or possibility of reexploration.
Follow white count and temperature curve.
Care Review
Plan reviewed with: Physician (Hospitalist)
[2023-08-09 16:17] LABS: Fentanyl, Urine Negative (Negative)
[2023-08-09] MEDS: CUBICIN 20 MG IV (17:02)
[2023-08-09] MEDS: LOVENOX 40 MG SC (17:02)
[2023-08-09] MEDS: ZOSYN 50 IV ×2 (17:03→23:42)
[2023-08-10] VITALS (13 sets, daily range): BP systolic 94–124; BP diastolic 48–66
[2023-08-10] MEDS: TYLENOL 1000 MG PO ×4 (00:33→22:23)
[2023-08-10] MEDS: ROXICODONE 10 MG PO ×2 (01:56→18:40)
[2023-08-10 06:20] LABS: % Basophils 1.2 % (0-2); % Immature Granulocytes 0.2 % (0-0.5); % Lymphocytes 42.2 % (20.5-51.1); % Monocytes 6.3 % (1.7-9.3); % Neutrophils 47.1 % (42.2-75.2); Absolute Basophils 0.1 10^3/uL (0-0.2); Absolute Eosinophils 0.3 10^3/uL (0-0.7); Absolute Lymphocytes 3.5 10^3/uL (1.2-3.4); Absolute Monocytes 0.5 10^3/uL (0.1-0.6); Absolute Neutrophils 3.9 10^3/uL (1.4-6.5); Hematocrit 27.8 % (39.0-52.0); Hemoglobin 9.4 g/dL (13.0-18.0); Mean Corp Hgb Conc. 33.8 g/dL (33.0-37.0); Mean Corpuscular Hgb 33.3 pg (27.0-31.0); Mean Corpuscular Volume 98.6 fL (80.0-94.0); Nucleated Red Blood Cells % 0 % (-); Platelet Count 661 10^3/uL (130-400); Red Blood Cell Count 2.82 10^6/uL (4.70-6.10); Red Cell Dist. Width 14.6 % (11.5-14.5); White Blood Cell Count 8.3 10^3/uL (4.8-10.8)
[2023-08-10] MEDS: ZOSYN 50 IV ×3 (06:21→23:53)
[2023-08-10 06:42] LABS: Blood Urea Nitrogen 18 mg/dl (9-20); Calcium 8.8 mg/dl (8.4-10.2); Carbon Dioxide 25 mmol/L (22-30); Chloride 106 mmol/L (98-107); Estimated Creatinine Clearance 79 ml/min; Glucose 80 mg/dl (70-99); Potassium 4.7 mmol/L (3.5-5.1); Sodium 136 mmol/L (135-145); eGFR > 60.00
--- NOTE | 2023-08-10 07:52 | W.PN.UPDATE ---
Update Note
Progress Note Update
Mr. Taylor is resting comfortably in bed this morning, and reports he is doing well. He denies any significant pain in the hip. We plan to proceed with OR today under the direction of Dr. Chakraborty for antibtiotic spacer placement. NPO until surgery.
He may continue WBAT to RLE until surgery. Continue pain control per primary. T+S completed. Please reach out with any additional questions or concerns.
[2023-08-10] MEDS: SENOKOT 8.59999999999999964 MG PO ×2 (08:00→20:13)
[2023-08-10] MEDS: MIRALAX PO (08:00)
[2023-08-10] MEDS: COLACE 100 MG PO ×2 (08:00→20:13)
[2023-08-10] MEDS: VITAMIN D3 (cholecalciferol) 25 MCG PO (08:00)
[2023-08-10] MEDS: VITAMIN B1 200 MG PO (08:01)
[2023-08-10] MEDS: DILAUDID IV (08:01)
[2023-08-10] MEDS: PEPCID 20 MG PO ×2 (08:01→20:13)
[2023-08-10] MEDS: THERAGRAN 1 TABLET PO (08:06)
--- NOTE | 2023-08-10 08:31 | W.PN.HOSP.TC ---
Today's Communication/Plan
-
await OR
Assessment / Plan
Assessment / Plan
Gen-AAOx3, NAD
HEENT-NC, AT, anicteric, clear oral mm
Neck-supple
CV-reg, no M, +S1/S2
Lungs-clear B/L
Abd-soft, NT, ND
Ext-no edema
Musculoskeletal-no cyanosis, clubbing
Skin-warm and dry
Neuro-grossly non-focal
Psych-calm, cooperative
Right hip prosthetic joint MRSA infection -currently n.p.o., awaiting revision in the OR today. Continue antibiotics per ID. Analgesics.
Subacute macrocytic anemia -hemoglobin stable, 9.4 today. B12, folate normal. Etiology of anemia likely due to prosthetic joint infection, inflammation.
Mild intermittent asthma �stable.
Osteoarthritis
GERD
Obesity due to excess calories -history of gastric sleeve surgery 2021. Reportedly lost 150 pounds.
History of tobacco dependence -quit 2 weeks ago.
History of alcohol use disorder -reportedly stopped 2 weeks ago.
Marijuana use
Full code
Anticipated Discharge: > 48 hours
Subjective/Interval History
-
Date of Service: August 10, 2023
Patient seen and examined. Currently with controlled pain, 6 out of 10. Looks comfortable. Ambulating in the room.
Objective Data
-
Labs:
Laboratory Results
08/10/23
06:14
WBC 8.3
Hgb 9.4 L
Hct 27.8 L
Plt Count 661 H
Sodium 136
Potassium 4.7
Chloride 106
Carbon Dioxide 25
BUN 18
Creatinine 1.2
Glucose 80
Calcium 8.8
Vital Signs:
Vital Signs
Temp Pulse Resp BP Pulse Ox
98.1 F 74 16 100/60 97
08/09/23 23:47 08/09/23 23:47 08/09/23 23:47 08/09/23 23:47 08/09/23 23:47
I&O
08/09/23 08/10/23 08/11/23
06:59 06:59 06:59
Intake Total 960 / 960
Balance 960 / 960
Review of Systems
-
History Source: Patient
All other systems: Reviewed and negative
[2023-08-10] MEDS: DILAUDID 0.5 MG IV ×3 (10:00→20:14)
--- NOTE | 2023-08-10 10:44 | W.PN.ID1 ---
Date of Service
Date of Service: August 10, 2023
Today's Communication
Continue antibiotics.
Assessment / Plan
Right hip PJI, with prior recovery of MRSA.
Ongoing wound drainage
Recommendations:
Continue with daptomycin and empiric Zosyn.
For OR today. Would check deep cultures (aerobic and anaerobic.)
Follow white count and temperature curve.
Chief Complaint
-: Other (Right hip PJI)
Subjective / Review of Systems
Review of Systems: No Fever and No Chills
Vital Signs / Physical Exam
Vital Signs
Vital Signs
Temp Pulse Resp BP Pulse Ox
97.8 F 63 14 124/66 95
08/10/23 07:05 08/10/23 07:05 08/10/23 07:05 08/10/23 07:05 08/10/23 07:05
Physical Exam
Constitutional: No Acute Distress, Comfortable and Non-toxic
Eyes: Sclera Anicteric
Cardiovascular: S1/S2; Negative S3/S4
Pulmonary: Non Labored
Gastrointestinal: Soft and Non Tender
Wound: Other (Right hip prior incisional area with serosanguineous drainage. Mild purulence noted.)
Neurological: Awake and Alert
Psychological: Calm
Objective Data
Lab Data
Lab Results
08/10/23 06:14
08/10/23 06:14
ESR 86 mm/hour (0-20) H 08/08/23 18:48
Estimated Creat Clear 79 ml/min 08/10/23 06:14
Total Bilirubin 0.5 mg/dl (0.2-1.3) 08/08/23 18:48
AST 32 U/L (17-59) 08/08/23 18:48
ALT 37 U/L (0-50) 08/08/23 18:48
Alkaline Phosphatase 97 U/L (38-126) 08/08/23 18:48
C-Reactive Protein 54.90 mg/L (0.0-10.00) H 08/08/23 18:48
Most recent labs reviewed.
--- NOTE | 2023-08-10 12:10 | PTCARENOTE ---
Report given to OR. Updated patient and at bedside. CHG wipes done.
--- NOTE | 2023-08-10 14:50 | CM ---
Addendum entered by Chayo Vaca 08/10/23 15:53:
[facility]
[phone]

Original Note:
Chart reviewed and patient is OR today, patient was admitted from home where he lives with his spouse, in a 2 story home with 2 steps to enter, patient is independent with adl's and has a walker, cane and crutches with ambulation, patient was set up
with home infusion though [facility], and Susan visiting nurses, call placed to Reanna at [facility] to inform her that patient is in hospital and may need to follow up with home infusion at discharge.
Plan; Home with [facility] and home infusion for IV ABX?
[2023-08-10] MEDS: ZOSYN IV (16:03)
[2023-08-10] MEDS: ROXICODONE 5 MG PO (16:05)
--- NOTE | 2023-08-10 16:34 | PTCARENOTE ---
Pt. received from PACU. VSS. Kolby SHIRLEY. Neurovascular checks q 4 hrs. Pt. with mild sensory loss b/l from knees down from spinal anesthesia.
[2023-08-10] MEDS: CUBICIN 20 MG IV (17:10)
[2023-08-10] MEDS: LOVENOX 40 MG SC (17:10)
[2023-08-10] MEDS: ASPIRIN 325 MG PO (17:10)
[2023-08-10] MEDS: SENOKOT 17.1999999999999993 MG PO (20:13)
[2023-08-10] MEDS: BACTROBAN 2% OINTMENT 1 APPLIC NASAL (20:14)
[2023-08-11] MEDS: DILAUDID 0.5 MG IV ×5 (00:48→19:51)
[2023-08-11] MEDS: ROXICODONE 10 MG PO ×4 (02:18→22:11)
[2023-08-11 03:46] VITALS: BP 113/56
[2023-08-11] MEDS: ZOSYN 50 IV (05:52)
[2023-08-11 06:09] LABS: % Basophils 0.5 % (0-2); % Eosinophils 0.1 % (0-6); % Immature Granulocytes 0.5 % (0-0.5); % Lymphocytes 22.1 % (20.5-51.1); % Monocytes 5.5 % (1.7-9.3); % Neutrophils 71.3 % (42.2-75.2); Absolute Basophils 0.1 10^3/uL (0-0.2); Absolute Immature Granulocytes 0.1 10^3/uL (0-0.05); Absolute Lymphocytes 2.7 10^3/uL (1.2-3.4); Absolute Monocytes 0.7 10^3/uL (0.1-0.6); Absolute Neutrophils 8.6 10^3/uL (1.4-6.5); Hematocrit 22.1 % (39.0-52.0); Hemoglobin 7.6 g/dL (13.0-18.0); Mean Corp Hgb Conc. 34.4 g/dL (33.0-37.0); Mean Corpuscular Hgb 34.2 pg (27.0-31.0); Mean Corpuscular Volume 99.5 fL (80.0-94.0); Mean Platelet Volume 9.3 fL (7.4-10.4); Nucleated Red Blood Cells % 0 % (-); Platelet Count 540 10^3/uL (130-400); Red Blood Cell Count 2.22 10^6/uL (4.70-6.10); Red Cell Dist. Width 14.2 % (11.5-14.5)
[2023-08-11 08:00] VITALS: BP 91/49
[2023-08-11] MEDS: VITAMIN D3 (cholecalciferol) 25 MCG PO (08:16)
[2023-08-11] MEDS: THERAGRAN 1 TABLET PO (08:16)
[2023-08-11] MEDS: PEPCID 20 MG PO ×2 (08:16→19:38)
[2023-08-11] MEDS: SENOKOT 17.1999999999999993 MG PO ×2 (08:17→19:39)
[2023-08-11] MEDS: VITAMIN B1 200 MG PO (08:17)
[2023-08-11] MEDS: COLACE 100 MG PO ×2 (08:17→19:38)
[2023-08-11] MEDS: ASPIRIN 325 MG PO (08:17)
[2023-08-11] MEDS: SENOKOT 8.59999999999999964 MG PO ×2 (08:17→19:39)
[2023-08-11] MEDS: MIRALAX 17 GRAMS PO (08:18)
--- NOTE | 2023-08-11 08:19 | W.PN.ORTHO ---
Today's Communication / Plan
-
PT/OT
Lovenox for DVT prophylaxis
Weightbearing as tolerated
Zosyn/daptomycin per ID recommendation
Discharge to home once medically stable
Follow-up with Dr. Chakraborty 2 weeks postop
Assessment
.
Distal Motor Intact: Yes
Dressing:
Clean, dry and intact.
Plan
.
Surgery / Date: Explant/ R RHA single-stage 08/09 [facility]
DVT Prophylaxis: Lovenox
Activity:
Out of bed.
PT/OT
Discharge Plan: Home w/ VN
Subjective
.
.:
Patient resting comfortably.
Vital Signs and Labs
.
Vital Signs and Labs:
Lab Results
08/11/23 06:00
08/10/23 06:14
Temp Pulse Resp BP Pulse Ox
97.9 F 64 16 113/56 98
08/11/23 03:46 08/11/23 03:46 08/11/23 03:46 08/11/23 03:46 08/11/23 03:46
Prior cultures with MRSA
[2023-08-11] MEDS: BACTROBAN 2% OINTMENT 1 APPLIC NASAL ×2 (08:20→19:38)
[2023-08-11 10:28] VITALS: BP 102/53; PULSE 81; O2SAT 97
--- NOTE | 2023-08-11 10:38 | W.PN.ID1 ---
Date of Service
Date of Service: August 11, 2023
Today's Communication
Since no OR cx to guide therapy:
Recommend continue Daptomycin 1000mg IV q24 through 09/21/2023.
Replace Zosyn with cefepime 2g IVq12h through 09/21/2023.
Assessment / Plan
Right hip PJI, with prior recovery of MRSA.
Ongoing wound drainage s/p 1 stage total revision with cement 08/10/23. No OR culture sent.
Leukocytosis
Recommendations:
Since no OR cx to guide therapy:
Recommend continue Daptomycin 1000mg IV q24 through 09/21/2023.
Replace Zosyn with cefepime 2g IVq12h through 09/21/2023.
Follow weekly ck, cbc, cmp, crp.
Infusion sheet submitted to case management.
Follow white count and temperature curve.
Chief Complaint
-: Other (Right hip PJI)
Subjective / Review of Systems
Surgerry went well.
Vital Signs / Physical Exam
Vital Signs
Vital Signs
Temp Pulse Resp BP Pulse Ox
98.0 F 63 15 91/49 98
08/11/23 08:00 08/11/23 08:00 08/11/23 08:00 08/11/23 08:00 08/11/23 10:32
Physical Exam
Constitutional: No Acute Distress and Comfortable
Pulmonary: Clear
Gastrointestinal: Soft, Non Tender and Non Distended
Neurological: AO x 3
Lines: PICC (RUE intact)
Objective Data
Lab Data
Lab Results
08/11/23 06:00
08/10/23 06:14
ESR 86 mm/hour (0-20) H 08/08/23 18:48
Estimated Creat Clear 79 ml/min 08/10/23 06:14
Total Bilirubin 0.5 mg/dl (0.2-1.3) 08/08/23 18:48
AST 32 U/L (17-59) 08/08/23 18:48
ALT 37 U/L (0-50) 08/08/23 18:48
Alkaline Phosphatase 97 U/L (38-126) 08/08/23 18:48
C-Reactive Protein 54.90 mg/L (0.0-10.00) H 08/08/23 18:48
Most recent labs reviewed.
[2023-08-11] MEDS: TYLENOL 1000 MG PO ×2 (12:23→19:01)
--- NOTE | 2023-08-11 13:13 | W.PN.HOSP.TC ---
Today's Communication/Plan
-
Recheck hemoglobin
Assessment / Plan
Assessment / Plan
Gen-AAOx3, NAD
HEENT-NC, AT, anicteric, clear oral mm
Neck-supple
CV-reg, no M, +S1/S2
Lungs-clear B/L
Abd-soft, NT, ND
Ext-no edema
Musculoskeletal-no cyanosis, clubbing
Skin-warm and dry
Neuro-grossly non-focal
Psych-calm, cooperative
Right hip prosthetic joint MRSA infection - stable after right hip revision surgery/07/30. Continue antibiotics, analgesics. Continue PT/OT.
Infectious disease recommends IV daptomycin and cefepime until 09/20. PICC line is in place on the right upper extremity. Visiting nursing arranged.
Acute postoperative blood loss anemia on chronic anemia -hemoglobin down to 7.6 this a.m. Preoperative hemoglobin was averaging 8-10 range. Suspect acute operative blood loss anemia contributing. B12, folate normal. Will check repeat hemoglobin
now. Will need transfusion if below 7.
Mild intermittent asthma �stable.
Osteoarthritis
GERD
Obesity due to excess calories -history of gastric sleeve surgery 2021. Reportedly lost 150 pounds.
History of tobacco dependence -quit 2 weeks ago.
History of alcohol use disorder -reportedly stopped 2 weeks ago.
Marijuana use
Full code
Updated family at the bedside.
Anticipated Discharge: Within 24 hours
Subjective/Interval History
-
Date of Service: August 11, 2023
Patient seen and examined. Hip pain is under control. No complaints.
Objective Data
-
Labs:
Laboratory Results
08/11/23 08/11/23
06:00 13:04
WBC 12.0 H
Hgb 7.6 L Pending
Hct 22.1 L Pending
Plt Count 540 H
Vital Signs:
Vital Signs
Temp Pulse Resp BP Pulse Ox
98.0 F 63 15 91/49 98
08/11/23 08:00 08/11/23 08:00 08/11/23 08:00 08/11/23 08:00 08/11/23 10:32
I&O
08/10/23 08/11/23 08/12/23
06:59 06:59 06:59
Intake Total 960 / 960 1060 / 1060
Balance 960 / 960 1060 / 1060
Review of Systems
-
History Source: Patient
All other systems: Reviewed and negative
[2023-08-11 13:57] LABS: Hematocrit 22.8 % (39.0-52.0); Hemoglobin 7.6 g/dL (13.0-18.0)
--- NOTE | 2023-08-11 13:57 | CM ---
Continue on IV/AB. Discharge Plan of Care: Home with resumption Of IV/AB with [facility] and [facility] services for VN and PT. Updated information supplied to [facility] and [facility].
[2023-08-11 14:29] VITALS: BP 94/43; PULSE 75
[2023-08-11 15:00] VITALS: BP 116/53
--- NOTE | 2023-08-11 15:21 | PN.CDI ---
CDI
- -
CDI:
Physician Documentation Request
Admit Date: 08/09/23 09:17
Dear Doctor Mylene,
Clinical Indicators:
Patient admitted with right hip prosthetic joint infection; s/p Revision of right hip total hip replacement 08/09.
08/09 Operative Report, 'I debrided circumferentially skin, subcutaneous tissue, muscle and bone, and I did so sharply with a scalpel as well as bone reamers. I spent about 45 minutes debriding all of the devitalized and infected appearing tissue...'
Could you provide, in the progress notes further clarification regarding the debridement.
Please specify the type of debridement performed:
1. Excisional Debridement - defined as removal by excision of devitalized tissue, necrosis or slough
2. Non-excisional debridement - defined as removal of devitalized tissue, necrosis or slough by such methods as
irrigation, brushing, scrubbing or washing.
Use of terms such as suspected, likely, concern for, or probable (associated with a specific diagnosis that is being evaluated, monitored, or treated as if it exists) are acceptable and can be coded in the inpatient setting, when documented at the
time of discharge.
Thank you,
JT Saldivar RN
CDI Specialist
available via tiger text
Please use your independent medical judgment in providing your response.
[2023-08-11] MEDS: CUBICIN 20 MG IV (16:11)
[2023-08-11] MEDS: STERILE WATER FOR INJECTION 10 ML IV (19:39)
[2023-08-11] MEDS: MAXIPIME 2000 MG IV (19:39)
[2023-08-11 23:00] VITALS: BP 114/88
[2023-08-12] MEDS: DILAUDID 0.5 MG IV (00:43)
[2023-08-12] MEDS: TYLENOL 1000 MG PO (03:37)
[2023-08-12] MEDS: ROXICODONE 10 MG PO ×2 (04:42→11:26)
[2023-08-12 05:23] LABS: % Basophils 0.9 % (0-2); % Eosinophils 3.5 % (0-6); % Immature Granulocytes 0.4 % (0-0.5); % Lymphocytes 43.7 % (20.5-51.1); % Monocytes 5.6 % (1.7-9.3); % Neutrophils 45.9 % (42.2-75.2); Absolute Basophils 0.1 10^3/uL (0-0.2); Absolute Eosinophils 0.3 10^3/uL (0-0.7); Absolute Lymphocytes 3.5 10^3/uL (1.2-3.4); Absolute Monocytes 0.5 10^3/uL (0.1-0.6); Absolute Neutrophils 3.7 10^3/uL (1.4-6.5); Mean Corp Hgb Conc. 33.7 g/dL (33.0-37.0); Mean Corpuscular Hgb 32.8 pg (27.0-31.0); Mean Corpuscular Volume 97.5 fL (80.0-94.0); Mean Platelet Volume 9.4 fL (7.4-10.4); Nucleated Red Blood Cells % 0 % (-); Platelet Count 499 10^3/uL (130-400); Red Blood Cell Count 2.04 10^6/uL (4.70-6.10); Red Cell Dist. Width 14.5 % (11.5-14.5)
[2023-08-12 05:30] LABS: Hematocrit 19.9 % (39.0-52.0); Hemoglobin 6.7 g/dL (13.0-18.0)
--- NOTE | 2023-08-12 05:34 | W.PN.UPDATE ---
Update Note
Progress Note Update
Morning labs: Hgb 6.7/Hct 19.9, down from Hgb 7.6/Hct 22.8. Nurse stated blood consent is in chart.
Plan:
- 1 unit PRBCs, recheck H/H
[2023-08-12 06:00] VITALS: BP 97/53
--- NOTE | 2023-08-12 06:08 | PTCARENOTE ---
Patient hgb critical 6.7. Notified DRA[employer]ER. 1 unit PRBCs ordered and initiated. Patient states that he feels fine but he feels general weakness. Vitals BP 97/53, 67 HR, 16 RR, 95 RA, temp 98.1. Patient is resting comfortably in bed.
[2023-08-12 06:21] VITALS: BP 109/53
[2023-08-12 07:55] VITALS: BP 114/64
--- NOTE | 2023-08-12 08:09 | W.PN.HOSP.TC ---
Today's Communication/Plan
-
Transfuse
Discharge
Assessment / Plan
Assessment / Plan
Gen-AAOx3, NAD
HEENT-NC, AT, anicteric, clear oral mm
Neck-supple
CV-reg, no M, +S1/S2
Lungs-clear B/L
Abd-soft, NT, ND
Ext-no edema
Musculoskeletal-no cyanosis, clubbing
Skin-warm and dry
Neuro-grossly non-focal
Psych-calm, cooperative
Right hip prosthetic joint MRSA infection - stable after right hip revision surgery/07/30. Continue antibiotics, analgesics. Continue PT/OT.
Infectious disease recommends IV daptomycin and cefepime until 09/20. PICC line is in place on the right upper extremity. Visiting nursing arranged.
Acute postoperative blood loss anemia on chronic anemia -hemoglobin down to 6.7 this a.m. Preoperative hemoglobin was averaging 8-10 range. Suspect acute operative blood loss anemia contributing. B12, folate normal. Getting 1 unit of transfusion
currently.
Mild intermittent asthma �stable.
Osteoarthritis
GERD
Obesity due to excess calories -history of gastric sleeve surgery 2021. Reportedly lost 150 pounds.
History of tobacco dependence -quit 2 weeks ago.
History of alcohol use disorder -reportedly stopped 2 weeks ago.
Marijuana use
Full code
Dispo -can discharge after transfusion today. Continue antibiotics at home. Outpatient follow-up. CBC next week with primary care doctor. Will send prescription for oxycodone to his pharmacy. I instructed him to not take any more Dilaudid that
he states that he does not have any more at home anyway. We discussed the importance of short-term use of opiates so that the risk of potential abuse and addiction are lowered. Patient agrees.
32-minute spent in discharge process.
Anticipated Discharge: Today
Subjective/Interval History
-
Date of Service: August 12, 2023
Patient seen and examined. Had some pain last night.
Objective Data
-
Labs:
Laboratory Results
08/12/23
05:01
WBC 8.0
Hgb 6.7 L*
Hct 19.9 L*
Plt Count 499 H
Vital Signs:
Vital Signs
Temp Pulse Resp BP Pulse Ox
98.4 F 64 14 114/64 96
08/12/23 07:55 08/12/23 07:55 08/12/23 07:55 08/12/23 07:55 08/12/23 07:55
I&O
08/11/23 08/12/23 08/13/23
06:59 06:59 06:59
Intake Total 1060 / 1060 1480 / 1480
Balance 1060 / 1060 1480 / 1480
Review of Systems
-
History Source: Patient
All other systems: Reviewed and negative
--- NOTE | 2023-08-12 08:17 | W.DS.TRANS ---
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
-
Discharge Instructions:
Discharge Diagnosis/Procedures Right hip prosthetic joint infection, right
total hip arthroplasty revision, postoperative
anemia
Diet Regular
Activity As tolerated,With assistance
Driving Restrictions No driving
Bathing Restrictions None
Blood Work CBC next week with your primary care doctor
Other Services VN
Instructions:
Stand-Alone Forms:
Changes to Home Medications: No
Discharge Medications:
DC Medications w/original date entered in [employer]
multivitamin with minerals-folic acid 12 mcg chewable tablet (Centrum Adults) 1 tab PO DAILY Supplement 07/31/23
DAPTOmycin [Cubicin] 1,000 mg As Directed mls/hr IV Q24H 08/04/23
aspirin 325 mg tablet 325 mg PO DAILY Blood Clot Prevention/Tx 30 days #30 tabs 08/04/23
CoQ-10 1 cap PO DAILY Supplement 08/09/23
acetaminophen 500 mg tablet (Tylenol Extra Strength) 1,000 mg PO Q6H Pain 08/09/23
cholecalciferol (vitamin D3) 1 tab PO DAILY Supplement 08/09/23
docusate sodium 100 mg capsule 100 mg PO DAILY Constipation 08/09/23
cefepime 2 gram solution for injection 2,000 mg IV Q12H #0 ea 08/11/23
polyethylene glycol 3350 17 gram oral powder packet (HealthyLax) 17 g PO DAILY #0 ea 08/11/23
oxycodone 10 mg tablet 10 mg PO Q6HPRN PRN mod pain #20 tabs 08/12/23
Home Medication Changes
Pending Results: No
--- NOTE | 2023-08-12 08:50 | W.PN.ORTHO ---
Today's Communication / Plan
-
POD #2 s/p right hip revision for infection
PT/OT
Lovenox for DVT prophylaxis. Transition to Aspirin 325 mg at discharged.
Weightbearing as tolerated with walker.
Pain management as needed.
Zosyn/daptomycin per ID recommendation
Discharge to home once medically stable
Follow-up with Dr. Chakraborty 2 weeks postop
Assessment
.
Distal Motor Intact: Yes
Dressing:
Clean, dry and intact.
Assessment:
POD #2 s/p right hip revision for infection
PT/OT
Lovenox for DVT prophylaxis. Transition to Aspirin 325 mg at discharged.
Weightbearing as tolerated with walker.
Pain management as needed.
Zosyn/daptomycin per ID recommendation
Discharge to home once medically stable
Follow-up with Dr. Chakraborty 2 weeks postop
Plan
.
Surgery / Date: Explant/ R RHA single-stage 08/09 Mylene
DVT Prophylaxis: Aspirin
Activity:
Out of bed.
PT/OT
Discharge Plan: Home
Subjective
.
.:
Patient resting comfortably, but reports he had a difficult time sleeping last night. Currently receiving blood transfusion as hgb was 6.7 this morning.
Vital Signs and Labs
.
Vital Signs and Labs:
Lab Results
08/12/23 05:01
08/10/23 06:14
Temp Pulse Resp BP Pulse Ox
98.4 F 64 14 114/64 96
08/12/23 07:55 08/12/23 07:55 08/12/23 07:55 08/12/23 07:55 08/12/23 07:55
Physical Exam
-
Right hip: aquacel is c/d/i. No erythema or fluctuance. ROM with mild discomfort. Calf soft and non tender.
[2023-08-12] MEDS: THERAGRAN 1 TABLET PO (09:26)
[2023-08-12] MEDS: SENOKOT 17.1999999999999993 MG PO (09:27)
[2023-08-12] MEDS: COLACE 100 MG PO (09:27)
[2023-08-12] MEDS: ASPIRIN 325 MG PO (09:27)
[2023-08-12] MEDS: SENOKOT 8.59999999999999964 MG PO (09:27)
[2023-08-12] MEDS: VITAMIN D3 (cholecalciferol) 25 MCG PO (09:28)
[2023-08-12] MEDS: PEPCID 20 MG PO (09:28)
[2023-08-12] MEDS: VITAMIN B1 200 MG PO (09:29)
[2023-08-12] MEDS: MIRALAX PO (09:30)
[2023-08-12] MEDS: ROXICODONE 5 MG PO (09:33)
[2023-08-12] MEDS: MAXIPIME 2000 MG IV (09:47)
[2023-08-12] MEDS: STERILE WATER FOR INJECTION 10 ML IV (09:47)
[2023-08-12 09:51] VITALS: BP 108/67
--- NOTE | 2023-08-12 10:45 | W.PN.ID1 ---
Date of Service
Date of Service: August 12, 2023
Today's Communication
Follow-up with Dr. Sanchez.
Assessment / Plan
Right hip PJI, with prior recovery of MRSA.
Readmitted for Ongoing wound drainage
- s/p 1 stage total revision with cement 08/10/23. + purulence seen tracking to joint. No OR culture sent.
Leukocytosis - resolved
Blood loss anemia - s/p pRBC transfusion
Recommendations:
Since no OR cx to guide therapy:
Recommend continue Daptomycin 1000mg IV q24 through 09/21/2023.
Continue cefepime 2g IVq12h through 09/21/2023.
Follow weekly ck, cbc, cmp, crp , esr
Follow-up with Dr. Sanchez.
Chief Complaint
-: Other (Right hip PJI)
Subjective / Review of Systems
Tolerating abx's. Going home today.
Vital Signs / Physical Exam
Vital Signs
Vital Signs
Temp Pulse Resp BP Pulse Ox
98.2 F 62 18 108/67 96
08/12/23 09:51 08/12/23 09:51 08/12/23 09:51 08/12/23 09:51 08/12/23 09:45
Physical Exam
Constitutional: No Acute Distress and Comfortable
Pulmonary: Clear
Gastrointestinal: Soft, Non Tender and Non Distended
Neurological: AO x 3
Lines: PICC (RUE intact)
Objective Data
Lab Data
Lab Results
08/12/23 05:01
08/10/23 06:14
ESR 86 mm/hour (0-20) H 08/08/23 18:48
Estimated Creat Clear 79 ml/min 08/10/23 06:14
Total Bilirubin 0.5 mg/dl (0.2-1.3) 08/08/23 18:48
AST 32 U/L (17-59) 08/08/23 18:48
ALT 37 U/L (0-50) 08/08/23 18:48
Alkaline Phosphatase 97 U/L (38-126) 08/08/23 18:48
C-Reactive Protein 44.80 mg/L (0.0-10.00) H 08/10/23 06:14
Most recent labs reviewed.
--- NOTE | 2023-08-12 11:50 | CM ---
Patient has been medically cleared for discharge to home with resumption of infusion services with [facility] and prison with [facility]. Patient's transporting home.
[facility] FAX # [phone] and [phone].
[facility] FAX # [phone]
--- NOTE | 2023-08-17 06:03 | W.PN.UPDATE ---
Update Note
Progress Note Update
I performed an excisional debridement of skin, subq tissue, musclle, hip capsule and bone during this patient's surgery.
== END 2023-08-12 12:08 | disposition home health service (06) | DRG 940 ==
LOC: 2 NORTH 09:17
PROVIDERS: Emergency Medicine; Orthopaedic Surgery; ADMITTING PHYSICIAN Hospitalist; ATTENDING PHYSICIAN Hospitalist; EMERGENCY PHYSICIAN Emergency Medicine; FAMILY PHYSICIAN Physician Assistant Medical; OTHER PHYSICIAN Internal Medicine Infectious Disease
PROC: 0SR9039 Replacement of Right Hip Joint with Ceramic Synthetic Substitute, Cemented, Open Approach (ICD-10-PCS; 2023-08-10)
PROC: 0SB90ZZ Excision of Right Hip Joint, Open Approach (ICD-10-PCS; 2023-08-10)
PROC: 0SP90JZ Removal of Synthetic Substitute from Right Hip Joint, Open Approach (ICD-10-PCS; 2023-08-10)
PROC: 30243N1 Transfusion of Nonautologous Red Blood Cells into Central Vein, Percutaneous Approach (ICD-10-PCS; 2023-08-12)
DX: T84.51XD Infection and inflammatory reaction due to internal right hip prosthesis, subsequent encounter (principal); D62 Acute posthemorrhagic anemia; W19.XXXD Unspecified fall, subsequent encounter; M97.01XD Periprosthetic fracture around internal prosthetic right hip joint, subsequent encounter; Y79.2 Prosthetic and other implants, materials and accessory orthopedic devices associated with adverse incidents; Y83.1 Surgical operation with implant of artificial internal device as the cause of abnormal reaction of the patient, or of later complication, without mention of misadventure at the time of the procedure; S32.409D Unspecified fracture of unspecified acetabulum, subsequent encounter for fracture with routine healing; K21.9 Gastro-esophageal reflux disease without esophagitis; M19.90 Unspecified osteoarthritis, unspecified site; F10.90 Alcohol use, unspecified, uncomplicated; J45.20 Mild intermittent asthma, uncomplicated; E66.09 Other obesity due to excess calories; D75.839 Thrombocytosis, unspecified; F12.90 Cannabis use, unspecified, uncomplicated; K59.03 Drug induced constipation; T40.2X5A Adverse effect of other opioids, initial encounter; Z96.641 Presence of right artificial hip joint; Z86.14 Personal history of Methicillin resistant Staphylococcus aureus infection; Z98.84 Bariatric surgery status; Z87.891 Personal history of nicotine dependence; Z68.31 Body mass index [BMI] 31.0-31.9, adult
CPT/HCPCS: 71045; 73502; 80048; 80053; 80306; 80307; 82550; 82607; 82728; 83540; 83550; 83735; 85014; 85018; 85025; 85652; 86140; 86850; 86900; 86901; 86920; 93971; 97162; 97166; 97530; 99285; 99406; C1713; C1776; J0878; P9016

== ENCOUNTER → 2023-09-01 11:27 | Outpatient (REF) | payer OTHER, SELFPAY ==
[2023-09-01 12:36] LABS: Erythrocyte Sed Rate 64 mm/hour (0-20)
[2023-09-01 13:41] LABS: Albumin 3.8 g/dl (3.5-5.0)
[2023-09-01 15:23] LABS: Prealbumin (Transthyretin) 21.4 mg/dl (17.6-36.0)
== END ==
LOC: REG 11:27
PROVIDERS: ATTENDING PHYSICIAN Orthopaedic Surgery
DX: Z96.641 Presence of right artificial hip joint (principal)
CPT/HCPCS: 36415; 82040; 84134; 85652; 86140

== ENCOUNTER → 2025-05-06 09:11 | Outpatient (REF) | payer OTHER, SELFPAY ==
[2025-05-06 09:42] LABS: Hematocrit 48.4 % (39.0-52.0); Hemoglobin 16.8 g/dL (13.0-18.0); Mean Corp Hgb Conc. 34.7 g/dL (33.0-37.0); Mean Corpuscular Volume 100.6 fL (80.0-94.0); Platelet Count 234 10^3/uL (130-400); Red Cell Dist. Width 13.5 % (11.5-14.5)
[2025-05-06 10:15] LABS: Blood Urea Nitrogen 21 mg/dl (9-20); Calcium 9.6 mg/dl (8.4-10.2); Carbon Dioxide 27 mmol/L (22-30); Chloride 107 mmol/L (98-107); Glucose 95 mg/dl (70-99); Potassium 5.2 mmol/L (3.5-5.1); Sodium 140 mmol/L (135-145); eGFR > 60.00
[2025-05-06 10:20] LABS: C-Reactive Protein < 5.00 mg/L (0.0-10.00)
== END ==
LOC: REG 09:11
PROVIDERS: ATTENDING PHYSICIAN Orthopaedic Surgery; FAMILY PHYSICIAN Family Medicine
DX: Z01.818 Encounter for other preprocedural examination (principal)
CPT/HCPCS: 36415; 80048; 85027; 85652; 86140; 93005